=== PATIENT | male | born 1940 | race Caucasian/White ===

== ENCOUNTER 2024-10-23 00:53 | Inpatient (IN) ==
[2024-10-23 01:15] LABS: iSTAT Creatinine 1.8 mg/dl (0.6-1.3); iSTAT Hemoglobin 16.7 g/dl (14.0-18.0); iSTAT Ionized Calcium 1.16 mmol/l (1.12-1.32); iSTAT Potassium 3.2 mmol/L (3.3-5.0)
--- NOTE | 2024-10-23 01:27 | Emergency Department Note ---
Impression & Plan Acute respiratory failure with hypoxia, COPD (chronic obstructive pulmonary disease), Pulmonary edema, CAD (coronary artery disease), Left bundle branch block, MELLY (acute kidney injury), Aspiration pneumonia ED Provider Note NAME: NEGAR FUENTES AGE: 84 SEX: M : 1940 ARRIVES VIA: Ambulance INFORMANT: Patient ED PROVIDER(S): Anjel Sears MD CHIEF COMPLAINT: Acute respiratory failure. PLAN: Disposition: Admit MEDICAL DECISION MAKING: The patient is an 84-year-old gentleman with a past medical history of COPD, restrictive lung disease, CAD (on Brilinta and Entresto) with recent history of [place] in September per discussion with the patient's where the patient had presented to [facility] and was transferred to [facility] and subsequently transferred to [place] where he received a stent. The details of this hospital course are not immediately available. Patient's reports that the patient had been doing well and had followed with [facility] cardiology subsequently. Today he was doing well also they have gone shopping. However this evening the patient reported that he felt congestion in his chest that he needed to cough up and after coughing forcefully began to cough clots and bloody frothy sputum and so EMS was called. On EMS arrival the found the patient in acute respiratory distress tripoding on the floor, noted to be pale and diaphoretic with O2 saturation 60% on RA. He was placed on BiPAP but O2 saturation was in the 70s. HR 120s and BP 170s/70s. This provider reviewed the patient's case with EMS on medical command call. Per my instruction, the patient was given sublingual nitroglycerin for afterload reduction. The patient's respiratory status was declining and was noted to be fatiguing, while also resisting and fighting the BiPAP mask. Thus upon further discussion on medical command call steps for [id number]-[id number] initiated. ~2mg/kg IM ketamine for dissociation/induction as well as 50mcg of Fentanyl for pain administered for DSI with the understanding that if the patient stabilized on BiPAP following this then intubation could be reassessed upon arriving to the emergency department. IV access obtained via left tibial I/O. On arrival, the patient had better tolerance of BiPAP after dissociation. O2 saturation was in the low-mid 80s and gradually improved to the low 90s. Patient's did arrive to the bedside and I did explain the patient's critical status. She did confirm that his wishes were to have everything done at this time and said if the patient were to need intubation then we will proceed with this. The patient continued to have guarded but stabilized respiratory status with O2 saturation in the low 90s. As the effects of his ketamine waned he began to follow commands and so intubation was deferred at this time. Limited bedside ultrasound demonstrates diffuse pulmonary edema on lung exam and limited cardiac ultrasound demonstrated no overt pericardial effusion but suspected at least moderately reduced EF. Patient was taken to CT for CT of his head as well as CT of the chest and abdomen pelvis. EKG demonstrates sinus tachycardia with left bundle branch block, no sgarbossa criteria. QTc 502, QRS 112. WBC 14.3 K with neutrophilia but no left shift. H/H within normal limits. Platelets within normal limits ABG with pH of 7.32, pCO2 of 33 and pO2 of 59. Chemistry with bicarbonate of 17 and anion gap of 18 with initial lactic acid 2.8. Creatinine 1.74, increased from prior consistent with MELLY. Potassium 3.3 and electrolytes otherwise unremarkable. LFTs unremarkable. Initial high- sensitivity troponin 22.6 in setting of the patient's acute respiratory failure. BNP is elevated at 3600 in the setting of suspected recent history of ischemic cardiomyopathy. Procalcitonin is not elevated. UA without convincing evidence of infection. Respiratory BioFire was negative. CT of the head negative for acute abnormalities. CT abdomen pelvis demonstrates prostamegaly and otherwise no acute intra-abdominal process. CTA of the chest is negative for PE. Confluent centrilobular and substantial paraseptal emphysema bilaterally described. Patchy consolidation with interlobular septal thickening of the left upper lobe, posterior segment of the right upper lobe and bilateral lower lobes. Additional right pleural effusion and left pleural effusion noted. Mediastinal lymphadenopathy is suspected to be reactive. Blood cultures were obtained and empiric treatment for aspiration pneumonia initiated with IV Zosyn and linezolid. IV fluid hydration deferred given history of CHF with presentation consistent with pulmonary edema. Case was discussed with Dr. Ortiz, [facility] hospitalist, who will evaluate the patient for admission. Further management per admitting team. Triage Nursing notes reviewed and agree them. Prior/external medical records reviewed Vital Signs: reviewed Differential diagnosis: Reactive airway disease, pneumonia, pneumothorax, COPD, CHF, infections, cardiac ischemia, pulmonary embolism, musculoskeletal, gastrointestinal, as well as other pathologies. ER treatment provided: See below. Diagnostics interpreted by me: ECG: Sinus tachycardia with left bundle branch block, 121 bpm, no sgarbossa criteria. QTc 502, QRS 112. Cardiac Monitoring: An order for continuous cardiac monitoring was placed and demonstrated Sinus tachycardia with left bundle branch block, 121 bpm Laboratory studies: See below Imaging studies: See below Consultation(s): Dr. Ortiz, [facility] hospitalist. HPI: The patient is an 84-year-old gentleman with a past medical history of COPD, restrictive lung disease, CAD (on Brilinta and Entresto) with recent history of [place] in September per discussion with the patient's where the patient had presented to [facility] and was transferred to [facility] and subsequently transferred to [place] where he received a stent. The details of this hospital course are not immediately available. Patient's reports that the patient had been doing well and had followed with [facility] cardiology subsequently. Today he was doing well also they have gone shopping. However this evening the patient reported that he felt congestion in his chest that he needed to cough up and after coughing forcefully began to cough clots and bloody frothy sputum and so EMS was called. On EMS arrival the found the patient in acute respiratory distress tripoding on the floor, noted to be pale and diaphoretic with O2 saturation 60% on RA. He was placed on BiPAP but O2 saturation was in the 70s. HR 120s and BP 170s/70s. This provider reviewed the patient's case with EMS on medical command call. Per my instruction, the patient was given sublingual nitroglycerin for afterload reduction. The patient's respiratory status was declining and was noted to be fatiguing, while also resisting and fighting the BiPAP mask. Thus upon further discussion on medical command call steps for wrsiryd-[id number]-[id number] initiated. ~2mg/kg IM ketamine for dissociation/induction as well as 50mcg of Fentanyl for pain administered for DSI with the understanding that if the patient stabilized on BiPAP following this then intubation could be reassessed upon arriving to the emergency department. IV access obtained via left tibial I/O. ROS: See above HPI for pertinent positives & negatives. A total of 10 systems reviewed and were otherwise negative. VITALS:See Below PHYSICAL EXAMINATION: GENERAL: Awake, alert, ill-appearing, in severe respiratory distress. HENT: Normocephalic, atraumatic. Oropharynx unremarkable. EYES: Normal conjunctiva. Sclera non-icteric. NECK: Supple. No nuchal rigidity. FROM. No JVD. RESPIRATORY: Rales and rhonchi of bilateral lung mag[place]. CARDIAC: Tachycardic rate, normal rhythm. Extremities cool and mottled. Palpable pedal pulses. ABDOMEN: Soft, non-distended. No tenderness to palpation. No rebound or guarding. No masses. MUSCULOSKELETAL: Chest examination reveals no tenderness. The back is symmetrical on inspection without obvious abnormality. There is no CVA tenderness to palpation. No joint edema. LOWER EXTREMITIES: Calves are equal size bilaterally and non-tender. No edema. No erythema. NEURO: Dissociated following ketamine prior to arrival. SKIN: No rash or jaundice noted. ED COURSE: Critical Care: I have personally spent greater than 65 minutes of critical care time in the direct management of this patient. This includes bedside care, interpretation of diagnostic studies, and testing, discussion with consultants, patient, and family members, and other required patient management activities. This 65 minutes is in excess of all separately billable procedures. Anjel Sears MD Past Med/Surg History Problem List (Updated 10/23/24 @ 07:13 by Anjel Sears MD) Left bundle branch block (Acute) COPD (chronic obstructive pulmonary disease) (Acute) MELLY (acute kidney injury) Required emergent intubation Hyperglycemia Admitted to intensive care unit Aspiration pneumonia (Acute) CAD (coronary artery disease) (Acute) Pulmonary edema (Acute) Abnormal chest x-ray Acute respiratory failure with hypoxia (Acute) No significant past surgical history No significant past medical history Medical History (Updated 10/23/24 @ 07:13 by Anjel Sears MD) Left bundle branch block Restrictive lung disease COPD (chronic obstructive pulmonary disease) Ex-smoker Shortness of breath Pneumonia due to COVID-19 virus COVID-19 Surgical History (Updated 10/23/24 @ 04:41 by LASHAWN Galindo) Presence of stent in coronary artery Family History Other No significant family history Social History Smoking Status: Former smoker Do You Dip or Chew Tobacco: No; Hx Alcohol Use: No Hx Substance Use: No Preferred Language: [place] Citizen Communication Ability: Effective 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 Beliefs That Will Affect Care: None Current Living Situation: Spouse Current Living Situation Comment: with Other Information That Helps Us Care for You: No Feels Safe at Home: Yes Safety Concerns: Feels Safe At This Time Assistive Devices: Denture - Upper, Denture - Lower and Glasses Allergies Allergies Allergy/AdvReac Type Severity Reaction Status Date / Time No Known Allergies Allergy Unverified 10/18/24 15:28 Home Meds Home Medications Medication Instructions Recorded Confirmed aspirin 81 mg tablet,delayed 81 mg PO DAILY 10/18/24 10/23/24 release (Adult Aspirin Regimen) atorvastatin 40 mg tablet 40 mg PO HS 10/23/24 10/23/24 citalopram 10 mg tablet 10 mg PO DAILY 10/23/24 10/23/24 dapagliflozin propanediol 10 mg 10 mg PO DAILY 10/23/24 10/23/24 tablet (Farxiga) furosemide 20 mg tablet 20 mg PO DAILY 10/23/24 10/23/24 metoprolol succinate 50 mg 50 mg PO DAILY 10/23/24 10/23/24 tablet,extended release 24 hr sacubitril 49 mg-valsartan 51 mg 1 tab PO BID 10/23/24 10/23/24 tablet (Entresto) ticagrelor 90 mg tablet (Brilinta) 90 mg PO BID 10/23/24 10/23/24 Previous Rx's Medication Instructions Recorded albuterol sulfate 90 mcg/actuation 2 puff inhalation Q6H PRN 09/23/23 aerosol inhaler Shortness Of Breath Or Wheezing #18 grams cephalexin 500 mg capsule 500 mg PO TID 7 days #21 caps 10/18/24 Results & Data (ED) Vital Signs Vital Signs - 24 hr 10/23/24 00:45 10/23/24 00:59 10/23/24 01:00 Temperature Temperature Source Pulse Rate 130 H 117 H 132 H Pulse Rate [Apical] Pulse Rate from SpO2 Sensor Respiratory Rate 35 H 32 H Respiratory Effort / Characteristics Respiratory Depth Respiratory Pattern Blood Pressure 146/95 H Blood Pressure [Left Arm] Blood Pressure Mean 101 Blood Pressure Mean [Left Arm] Pulse Oximetry 64 L 91 Oxygen Delivery Method BiPAP Fraction of Inspired Oxygen Sepsis Recent Fever Within 48 Hours No Sepsis New/Unexplained Change in Mental Status No Sepsis Action Taken by Nursing Physician Notified 10/23/24 01:02 10/23/24 01:06 10/23/24 01:06 Temperature 35.8 C L Temperature Source Wilkinson Cath ( Temp Sensing) Pulse Rate Pulse Rate [Apical] 122 H Pulse Rate from SpO2 Sensor Respiratory Rate 30 H Respiratory Effort / Characteristics Respiratory Depth Respiratory Pattern Blood Pressure Blood Pressure [Left Arm] 158/111 H Blood Pressure Mean Blood Pressure Mean [Left Arm] 126 Pulse Oximetry 93 Oxygen Delivery Method BiPAP BiPAP Fraction of Inspired Oxygen Sepsis Recent Fever Within 48 Hours Sepsis New/Unexplained Change in Mental Status Sepsis Action Taken by Nursing 10/23/24 01:10 10/23/24 01:10 10/23/24 01:10 Temperature Temperature Source Pulse Rate Pulse Rate [Apical] Pulse Rate from SpO2 Sensor Respiratory Rate Respiratory Effort / Characteristics Respiratory Depth Respiratory Pattern Blood Pressure 149/104 H 149/104 H 149/104 H Blood Pressure [Left Arm] Blood Pressure Mean 125 125 125 Blood Pressure Mean [Left Arm] Pulse Oximetry Oxygen Delivery Method Fraction of Inspired Oxygen Sepsis Recent Fever Within 48 Hours Sepsis New/Unexplained Change in Mental Status Sepsis Action Taken by Nursing 10/23/24 01:16 10/23/24 01:18 10/23/24 01:19 Temperature 36.4 C L Temperature Source Pulse Rate 116 H 116 H Pulse Rate [Apical] Pulse Rate from SpO2 Sensor 117 H Respiratory Rate 35 H Respiratory Effort / Characteristics Accessory Muscle Use Labored Short of Breath Respiratory Depth Shallow Respiratory Pattern Tachypnea Blood Pressure Blood Pressure [Left Arm] Blood Pressure Mean Blood Pressure Mean [Left Arm] Pulse Oximetry 93 91 89 L Oxygen Delivery Method BiPAP BiPAP Fraction of Inspired Oxygen 100 Sepsis Recent Fever Within 48 Hours Sepsis New/Unexplained Change in Mental Status Sepsis Action Taken by Nursing 10/23/24 01:20 10/23/24 01:20 10/23/24 01:21 Temperature 36.5 C Temperature Source Pulse Rate 119 H Pulse Rate [Apical] Pulse Rate from SpO2 Sensor 122 H Respiratory Rate Respiratory Effort / Characteristics Respiratory Depth Respiratory Pattern Blood Pressure 158/110 H 158/110 H Blood Pressure [Left Arm] Blood Pressure Mean 131 131 Blood Pressure Mean [Left Arm] Pulse Oximetry 90 Oxygen Delivery Method Fraction of Inspired Oxygen Sepsis Recent Fever Within 48 Hours Sepsis New/Unexplained Change in Mental Status Sepsis Action Taken by Nursing 10/23/24 01:50 10/23/24 01:50 10/23/24 01:50 Temperature Temperature Source Pulse Rate Pulse Rate [Apical] Pulse Rate from SpO2 Sensor Respiratory Rate Respiratory Effort / Characteristics Respiratory Depth Respiratory Pattern Blood Pressure 131/87 131/87 131/87 Blood Pressure [Left Arm] Blood Pressure Mean 109 109 109 Blood Pressure Mean [Left Arm] Pulse Oximetry Oxygen Delivery Method Fraction of Inspired Oxygen Sepsis Recent Fever Within 48 Hours Sepsis New/Unexplained Change in Mental Status Sepsis Action Taken by Nursing 10/23/24 01:50 10/23/24 01:51 10/23/24 01:57 Temperature 36.3 C L 36.4 C L Temperature Source Pulse Rate 100 H 100 H Pulse Rate [Apical] Pulse Rate from SpO2 Sensor 100 H 100 H Respiratory Rate 27 H 27 H Respiratory Effort / Characteristics Respiratory Depth Respiratory Pattern Blood Pressure 131/87 Blood Pressure [Left Arm] Blood Pressure Mean 109 Blood Pressure Mean [Left Arm] Pulse Oximetry 91 89 L Oxygen Delivery Method Fraction of Inspired Oxygen Sepsis Recent Fever Within 48 Hours Sepsis New/Unexplained Change in Mental Status Sepsis Action Taken by Nursing 10/23/24 02:00 10/23/24 02:03 10/23/24 02:12 Temperature 36.4 C L 36.5 C Temperature Source Pulse Rate 100 H 98 H Pulse Rate [Apical] Pulse Rate from SpO2 Sensor 101 H 98 H Respiratory Rate 27 H 26 H Respiratory Effort / Characteristics Respiratory Depth Respiratory Pattern Blood Pressure 122/85 Blood Pressure [Left Arm] Blood Pressure Mean 105 Blood Pressure Mean [Left Arm] Pulse Oximetry 90 89 L Oxygen Delivery Method Fraction of Inspired Oxygen Sepsis Recent Fever Within 48 Hours Sepsis New/Unexplained Change in Mental Status Sepsis Action Taken by Nursing Laboratory Data Attestation: I reviewed the patient's lab results. 10/23/24 01:15 10/23/24 01:15 Lab Results 10/23/24 10/23/24 10/23/24 Range/Units 01:00 01:02 01:05 WBC (4.8-10.8) K/ul RBC (4.70-6.10) M/uL Hgb (14.0-18.0) g/dl POC Hgb 16.7 (14.0-18.0) g/dl Hct (42.0-52.0) % POC Hct 49 (42-52) % MCV (80.0-100.0) fL MCH (25.0-34.0) pg MCHC (32.0-36.0) g/dL RDW Std Deviation (36.4-46.3) fL RDW Coeff of Dinah (11.5-14.5) % Plt Count (130-400) K/uL MPV (9.4-12.4) fL Immature Gran % (Auto) % Neut % (Auto) % Lymph % (Auto) % Jewell % (Auto) % Eos % (Auto) % Baso % (Auto) % Neut # (Auto) (1.40-6.50) K/uL Lymph # (Auto) (1.20-3.40) K/uL Jewell # (Auto) (0.11-0.59) K/uL Eos # (Auto) (0.00-0.50) K/uL Baso # (Auto) (0.00-0.20) K/uL Immature Gran # (Auto) (0.01-0.20) K/uL PT (9.0-12.0) Seconds INR (0.9-1.1) APTT (21-31) Seconds PTT Ratio POC pH (7.35-7.45) POC pCO2 (35-46) mmHg POC pO2 (80-95) mmHg POC HCO3 (19-24) osmar/L POC Base Excess (-9-1.8) osmar/L POC ABG O2 Sat (90-95) % POC Sodium 139 (135-144) mmol/L Sodium (136-145) mmol/L POC Potassium 3.2 L (3.3-5.0) mmol/L Potassium (3.5-5.1) mmol/L POC Chloride 105 (101-112) mmol/L Chloride (98-107) mmol/L Carbon Dioxide (21-32) mmol/L POC Total CO2 18 L (24-31) mmol/L Anion Gap (3-11) POC Anion Gap 19.0 (16-25) mmol/L POC BUN 19 H (7-18) mg/dl BUN (6-23) mg/dl Creatinine (0.6-1.4) mg/dl POC Creatinine 1.8 H (0.6-1.3) mg/dl Est Cr Clr Drug Dosing ml/min eGFR BUN/Creatinine Ratio (10-20) Glucose (70-99(Fasting)) mg/dl POC Glucose (other) 237 H (70-99) mg/dl Calcium (8.6-10.3) mg/dl POC Ioniz Calcium Arjun 1.16 (1.12-1.32) mmol/l Magnesium (1.7-2.4) mg/dl Total Bilirubin (0.2-1.0) mg/dl AST (13-39) U/L ALT (7-52) U/L Alkaline Phosphatase (34-104) U/L Troponin I High Sens (0-20) pg/ml B-Natriuretic Peptide (0-100) pg/ml Total Protein (6.0-8.3) gm/dl Albumin (3.4-5.0) gm/dl Globulin (2.5-4.0) gm/dl Albumin/Globulin Ratio (0.9-2) Lipase (11-82) U/L Procalcitonin < 0.02 (0-0.5) ng/ml Urine Color Yellow Urine Appearance Clear (Clear) Urine pH 6.0 (4.5-7.5) Ur Specific [place] 1.008 (1.000-1.030) Urine Protein Trace H (Negative) Urine Glucose (UA) Negative (Negative) Urine Ketones Negative (Negative) Urine Blood Trace H (Negative) Urine Nitrite Negative (Negative) Urine Bilirubin Negative (Negative) Urine Urobilinogen Negative (Negative) Ur Leukocyte Esterase 1+ H (Negative) Urine WBC (Auto) 6-10 H (0-5) /hpf Urine RBC (Auto) 3-5 H (0-2) /hpf U Hyaline Cast (Auto) 0-2 (0-2) /lpf U Epithel Cells (Auto) 0-2 (0-2) /hpf Urine Bacteria (Auto) None Seen (None Seen) Adenovirus (PCR) (NotDetected) B. pertussis DNA (PCR) (NotDetected) B.parapertussis DNA PCR (NotDetected) C. pneumoniae DNA (PCR) (NotDetected) Coronavirus OC43 (PCR) (NotDetected) Coronavirus HKU1 (PCR) (NotDetected) Coronavirus 229E (PCR) (NotDetected) SARS-CoV-2 (PCR) (NotDetected) Coronavirus NL63 (PCR) (NotDetected) Human Metapneumovir PCR (NotDetected) Influenza Type A (PCR) (NotDetected) Influenza Type B (PCR) (NotDetected) M. pneumoniae (PCR) (NotDetected) Parainfluenza 1 (PCR) (NotDetected) Parainfluenza 2 (PCR) (NotDetected) Parainfluenza 3 (PCR) (NotDetected) Parainfluenza 4 (PCR) (NotDetected) RSV (PCR) (NotDetected) Entero/Rhino (PCR) (NotDetected) 10/23/24 10/23/24 10/23/24 Range/Units 01:15 01:16 01:18 WBC 14.33 H (4.8-10.8) K/ul RBC 5.01 (4.70-6.10) M/uL Hgb 15.8 (14.0-18.0) g/dl POC Hgb (14.0-18.0) g/dl Hct 49.6 (42.0-52.0) % POC Hct (42-52) % MCV 99.0 (80.0-100.0) fL MCH 31.5 (25.0-34.0) pg MCHC 31.9 L (32.0-36.0) g/dL RDW Std Deviation 49.1 H (36.4-46.3) fL RDW Coeff of Dinah 13.5 (11.5-14.5) % Plt Count 301 (130-400) K/uL MPV 9.6 (9.4-12.4) fL Immature Gran % (Auto) 0.4 % Neut % (Auto) 52.4 % Lymph % (Auto) 38.0 % Jewell % (Auto) 4.5 % Eos % (Auto) 3.9 % Baso % (Auto) 0.8 % Neut # (Auto) 7.50 H (1.40-6.50) K/uL Lymph # (Auto) 5.45 H (1.20-3.40) K/uL Jewell # (Auto) 0.64 H (0.11-0.59) K/uL Eos # (Auto) 0.56 H (0.00-0.50) K/uL Baso # (Auto) 0.12 (0.00-0.20) K/uL Immature Gran # (Auto) 0.06 (0.01-0.20) K/uL PT 11.2 (9.0-12.0) Seconds INR 1.0 (0.9-1.1) APTT 28 (21-31) Seconds PTT Ratio 1.0 POC pH (7.35-7.45) POC pCO2 (35-46) mmHg POC pO2 (80-95) mmHg POC HCO3 (19-24) osmar/L POC Base Excess (-9-1.8) osmar/L POC ABG O2 Sat (90-95) % POC Sodium (135-144) mmol/L Sodium 137 (136-145) mmol/L POC Potassium (3.3-5.0) mmol/L Potassium 3.3 L (3.5-5.1) mmol/L POC Chloride (101-112) mmol/L Chloride 102 (98-107) mmol/L Carbon Dioxide 17 L (21-32) mmol/L POC Total CO2 (24-31) mmol/L Anion Gap 18 H (3-11) POC Anion Gap (16-25) mmol/L POC BUN (7-18) mg/dl BUN 19 (6-23) mg/dl Creatinine 1.74 H (0.6-1.4) mg/dl POC Creatinine (0.6-1.3) mg/dl Est Cr Clr Drug Dosing 25.5 ml/min eGFR 38.66 BUN/Creatinine Ratio 10.9 (10-20) Glucose 252 H (70-99(Fasting)) mg/dl POC Glucose (other) (70-99) mg/dl Calcium 9.2 (8.6-10.3) mg/dl POC Ioniz Calcium Arjun (1.12-1.32) mmol/l Magnesium 2.2 (1.7-2.4) mg/dl Total Bilirubin 0.4 (0.2-1.0) mg/dl AST 17 (13-39) U/L ALT 11 (7-52) U/L Alkaline Phosphatase 121 H (34-104) U/L Troponin I High Sens 22.6 H (0-20) pg/ml B-Natriuretic Peptide 3614 H (0-100) pg/ml Total Protein 7.3 (6.0-8.3) gm/dl Albumin 3.8 (3.4-5.0) gm/dl Globulin 3.5 (2.5-4.0) gm/dl Albumin/Globulin Ratio 1.1 (0.9-2) Lipase 34 (11-82) U/L Procalcitonin (0-0.5) ng/ml Urine Color Urine Appearance (Clear) Urine pH (4.5-7.5) Ur Specific [place] (1.000-1.030) Urine Protein (Negative) Urine Glucose (UA) (Negative) Urine Ketones (Negative) Urine Blood (Negative) Urine Nitrite (Negative) Urine Bilirubin (Negative) Urine Urobilinogen (Negative) Ur Leukocyte Esterase (Negative) Urine WBC (Auto) (0-5) /hpf Urine RBC (Auto) (0-2) /hpf U Hyaline Cast (Auto) (0-2) /lpf U Epithel Cells (Auto) (0-2) /hpf Urine Bacteria (Auto) (None Seen) Adenovirus (PCR) Not Detected (NotDetected) B. pertussis DNA (PCR) Not Detected (NotDetected) B.parapertussis DNA PCR Not Detected (NotDetected) C. pneumoniae DNA (PCR) Not Detected (NotDetected) Coronavirus OC43 (PCR) Not Detected (NotDetected) Coronavirus HKU1 (PCR) Not Detected (NotDetected) Coronavirus 229E (PCR) Not Detected (NotDetected) SARS-CoV-2 (PCR) Not Detected (NotDetected) Coronavirus NL63 (PCR) Not Detected (NotDetected) Human Metapneumovir PCR Not Detected (NotDetected) Influenza Type A (PCR) Not Detected (NotDetected) Influenza Type B (PCR) Not Detected (NotDetected) M. pneumoniae (PCR) Not Detected (NotDetected) Parainfluenza 1 (PCR) Not Detected (NotDetected) Parainfluenza 2 (PCR) Not Detected (NotDetected) Parainfluenza 3 (PCR) Not Detected (NotDetected) Parainfluenza 4 (PCR) Not Detected (NotDetected) RSV (PCR) Not Detected (NotDetected) Entero/Rhino (PCR) Not Detected (NotDetected) 10/23/24 Range/Units 02:01 WBC (4.8-10.8) K/ul RBC (4.70-6.10) M/uL Hgb (14.0-18.0) g/dl POC Hgb 14.3 (14.0-18.0) g/dl Hct (42.0-52.0) % POC Hct 42 (42-52) % MCV (80.0-100.0) fL MCH (25.0-34.0) pg MCHC (32.0-36.0) g/dL RDW Std Deviation (36.4-46.3) fL RDW Coeff of Dinah (11.5-14.5) % Plt Count (130-400) K/uL MPV (9.4-12.4) fL Immature Gran % (Auto) % Neut % (Auto) % Lymph % (Auto) % Jewell % (Auto) % Eos % (Auto) % Baso % (Auto) % Neut # (Auto) (1.40-6.50) K/uL Lymph # (Auto) (1.20-3.40) K/uL Jewell # (Auto) (0.11-0.59) K/uL Eos # (Auto) (0.00-0.50) K/uL Baso # (Auto) (0.00-0.20) K/uL Immature Gran # (Auto) (0.01-0.20) K/uL PT (9.0-12.0) Seconds INR (0.9-1.1) APTT (21-31) Seconds PTT Ratio POC pH 7.32 L (7.35-7.45) POC pCO2 33 L (35-46) mmHg POC pO2 59 L (80-95) mmHg POC HCO3 17 L (19-24) osmar/L POC Base Excess -9.0 (-9-1.8) osmar/L POC ABG O2 Sat 88.0 L (90-95) % POC Sodium 135 (135-144) mmol/L Sodium (136-145) mmol/L POC Potassium 2.7 L (3.3-5.0) mmol/L Potassium (3.5-5.1) mmol/L POC Chloride (101-112) mmol/L Chloride (98-107) mmol/L Carbon Dioxide (21-32) mmol/L POC Total CO2 18 L (24-31) mmol/L Anion Gap (3-11) POC Anion Gap (16-25) mmol/L POC BUN (7-18) mg/dl BUN (6-23) mg/dl Creatinine (0.6-1.4) mg/dl POC Creatinine (0.6-1.3) mg/dl Est Cr Clr Drug Dosing ml/min eGFR BUN/Creatinine Ratio (10-20) Glucose (70-99(Fasting)) mg/dl POC Glucose (other) (70-99) mg/dl Calcium (8.6-10.3) mg/dl POC Ioniz Calcium Arjun (1.12-1.32) mmol/l Magnesium (1.7-2.4) mg/dl Total Bilirubin (0.2-1.0) mg/dl AST (13-39) U/L ALT (7-52) U/L Alkaline Phosphatase (34-104) U/L Troponin I High Sens (0-20) pg/ml B-Natriuretic Peptide (0-100) pg/ml Total Protein (6.0-8.3) gm/dl Albumin (3.4-5.0) gm/dl Globulin (2.5-4.0) gm/dl Albumin/Globulin Ratio (0.9-2) Lipase (11-82) U/L Procalcitonin (0-0.5) ng/ml Urine Color Urine Appearance (Clear) Urine pH (4.5-7.5) Ur Specific [place] (1.000-1.030) Urine Protein (Negative) Urine Glucose (UA) (Negative) Urine Ketones (Negative) Urine Blood (Negative) Urine Nitrite (Negative) Urine Bilirubin (Negative) Urine Urobilinogen (Negative) Ur Leukocyte Esterase (Negative) Urine WBC (Auto) (0-5) /hpf Urine RBC (Auto) (0-2) /hpf U Hyaline Cast (Auto) (0-2) /lpf U Epithel Cells (Auto) (0-2) /hpf Urine Bacteria (Auto) (None Seen) Adenovirus (PCR) (NotDetected) B. pertussis DNA (PCR) (NotDetected) B.parapertussis DNA PCR (NotDetected) C. pneumoniae DNA (PCR) (NotDetected) Coronavirus OC43 (PCR) (NotDetected) Coronavirus HKU1 (PCR) (NotDetected) Coronavirus 229E (PCR) (NotDetected) SARS-CoV-2 (PCR) (NotDetected) Coronavirus NL63 (PCR) (NotDetected) Human Metapneumovir PCR (NotDetected) Influenza Type A (PCR) (NotDetected) Influenza Type B (PCR) (NotDetected) M. pneumoniae (PCR) (NotDetected) Parainfluenza 1 (PCR) (NotDetected) Parainfluenza 2 (PCR) (NotDetected) Parainfluenza 3 (PCR) (NotDetected) Parainfluenza 4 (PCR) (NotDetected) RSV (PCR) (NotDetected) Entero/Rhino (PCR) (NotDetected) Administered Medications Fentanyl Citrate (Fentanyl Citrate) 2,500 mcg in 250 mls @ 2.5 mls/hr IV .Q96H [facility]; Protocol Stop: 11/06/24 04:44 Last Admin: 10/23/24 04:56 Dose: 50 mcg/hr, 5 mls/hr Documented By: UMBERTO Co-signed By: [facility] [place]ithromycin 500 mg/ Sodium (Chloride) 255 mls @ 127.5 mls/hr IV NOW ONE Stop: 10/23/24 07:44 Last Admin: 10/23/24 05:50 Dose: 127.5 mls/hr Documented By: UMBERTO Insulin Aspart (Insulin Aspart Per Unit Charge) 0 units SC Q6 [facility] Stop: 11/22/24 05:59 Last Admin: 10/23/24 06:17 Dose: 3 units Documented By: TMG Co-signed By: TP Discontinued Medications Fentanyl Citrate (Fentanyl Citrate 2,500 Mcg/250 Ml Bag) Confirm Administered Dose 2,500 mcg IV .STK-MED ONE Stop: 10/23/24 04:09 Last Admin: 10/23/24 05:51 Dose: Not Given Documented By: TMG Furosemide (Furosemide Inj 20 Mg/2 Ml Vial) 20 mg IV ONE ONE Stop: 10/23/24 03:19 Last Admin: 10/23/24 04:35 Dose: 20 mg Documented By: UMBERTO Piperacillin Sod/Tazobactam Sod (Zosyn) 4.5 gm in 100 mls @ 200 mls/hr IV NOW ONE; Protocol Stop: 10/23/24 02:30 Last Infusion: 10/23/24 05:57 Dose: Infused Documented By: Admin: 10/23/24 02:17 Dose: 200 mls/hr Documented By: RAQUEL Linezolid (Zyvox) 600 mg in 300 mls @ 300 mls/hr IV NOW STA Stop: 10/23/24 03:00 Last Infusion: 10/23/24 05:57 Dose: Infused Documented By: Admin: 10/23/24 02:34 Dose: 300 mls/hr Documented By: RAQUEL Potassium Chloride (K Topher / Wtr) 10 meq in 100 mls @ 100 mls/hr IV Q1H [facility] Stop: 10/23/24 03:14 Last Infusion: 10/23/24 05:57 Dose: Infused Documented By: Admin: 10/23/24 02:17 Dose: 100 mls/hr Documented By: RAQUEL Ioversol (Optiray 320 125ml) 120 ml IV ONCE ONE Stop: 10/23/24 01:34 Last Admin: 10/23/24 01:31 Dose: 120 ml Documented By: SHELIA Lorazepam (Lorazepam 2 Mg/1 Ml Vial) 0.5 mg IV NOW STA Stop: 10/23/24 03:01 Last Admin: 10/23/24 04:35 Dose: 0.5 mg Documented By: UMBERTO Methylprednisolone (Methylprednisolone 125 Mg/2 Ml Vial) 125 mg IV NOW STA Stop: 10/23/24 02:05 Last Admin: 10/23/24 02:17 Dose: 125 mg Documented By: RAQUEL Miscellaneous (Rapid Sequence Induction Bag) Confirm Administered Dose 1 each N/A .STK-MED ONE Stop: 10/23/24 00:41 Last Admin: 10/23/24 03:17 Dose: Not Given Documented By: RAQUEL Liz (Rapid Sequence Induction Bag) Confirm Administered Dose 1 each N/A .STK-MED ONE Stop: 10/23/24 03:22 Last Admin: 10/23/24 04:36 Dose: Not Given Documented By: TMG Miscellaneous (Rapid Sequence Induction Bag) Confirm Administered Dose 1 each N/A .STK-MED ONE Stop: 10/23/24 03:56 Last Admin: 10/23/24 04:36 Dose: Not Given Documented By: TMG Ondansetron HCl (Ondansetron Inj 2 Mg/Ml 2 Ml Vial) 4 mg IV NOW STA Stop: 10/23/24 03:15 Last Admin: 10/23/24 04:35 Dose: 4 mg Documented By: TMG Ondansetron HCl (Ondansetron Inj 2 Mg/Ml 2 Ml Vial) Confirm Administered Dose 4 mg .ROUTE .STK-MED ONE Stop: 10/23/24 03:18 Last Admin: 10/23/24 04:36 Dose: Not Given Documented By: TMG Imaging Data Radiologist's Impression: Abdomen/Pelvis CT 10/23/24 01:16 EXAM: CT abd pelvis IV con only CLINICAL HISTORY: acute resp fail, r/o PE, ams, melly, 120 ml optiray 320 TECHNIQUE: Contiguous axial images were obtained from the level of the diaphragm to the pubic symphysis following intravenous administration of contrast material. Coronal and sagittal reconstructions were likewise performed and indicated to increase the sensitivity for detecting clinically relevant pathology. If IV contrast material had not been administered, the likelihood of detecting abnormalities relevant to the patient's condition would have been substantially decreased. CT scan was performed according to ALARA (as low as reasonable achievable). COMPARISON: None. FINDINGS: The visualized lung bases show confluent centrilobular emphysema with patchy consolidation. The liver shows two small subcentimetric cysts in segment II and VIII. No other focal liver lesions are seen. There is no intra or extrahepatic biliary ductal dilatation. Hepatic vasculature is patent. The gallbladder is unremarkable. The spleen, pancreas, and adrenal glands are unremarkable. The kidneys are normal in size and attenuation with a subcentimetric simple cyst at the upper pole of left kidney. There is no hydronephrosis or perinephric fat stranding. The ureters are normal in caliber. The urinary bladder is empty with Wilkinson's catheter in situ. The prostate is grossly enlarged. No focal or diffuse bowel wall thickening or evidence of bowel obstruction is identified. No inflamed appendix is visualized in the right lower quadrant. Extensive atherocalcific plaques noted in the abdominal aorta. Left small fat-containing inguinal hernia is noted. No aggressive appearing osseous lesions are identified. IMPRESSION: 1. Confluent centrilobular emphysema with patchy consolidation in visualized lung bases. 2. Prostatomegaly - ultrasound correlation recommended 3. Left fat-containing small inguinal hernia Electronically signed by Gilberto Middleton 10-23-2024 03:25 AM Chest CTA 10/23/24 01:16 EXAM: CT angio chest PE protocol CLINICAL HISTORY: acute resp fail, r/o PE, ams, melly, 120 ml optiray 320 TECHNIQUE: Contiguous 3.[address] angiographic images of the chest were acquired with the administration of intravenous contrast. Coronal and sagittal reconstructions were obtained. One of these 3D techniques was utilized: Maximum Intensity Pixel (MIP), 3D Reconstructed Images, Volume Rendered Images, Surface Shaded Rendering. One of the following dose reduction techniques were utilized for this exam: Automated exposure control, adjustment of the mA and/or kV according to patient size, and use of iterative reconstruction. CTDI: DLP: COMPARISON: None. FINDINGS: Aorta: Extensive atherocalcific plaques in aortic arch and descending thoracic aorta. No evidence of aneurysm, dissection, or significant atherosclerotic changes. Aortic arch and descending thoracic aorta are unremarkable. Pulmonary Arteries: Pulmonary arteries are normal in size and opacification. No evidence of pulmonary embolism. No stenosis or filling defects. Superior Vena Cava (SVC) and Inferior Vena Cava (IVC): Normal opacification and caliber. No evidence of thrombus or obstruction. Coronary Arteries: Coronary arteries are well-opacified. No significant stenosis or atherosclerotic changes. Mediastinum: No mediastinal mass or lymphadenopathy. Normal appearance of the thymus. Heart: Normal size and morphology of the heart. No pericardial effusion. Lungs: Visualized abdomen reveals few subcentimetric simple hepatic cyst in segment II and VIII. There is confluent centrilobular and substantial paraseptal emphysema in bilateral lung parenchyma. Patchy consolidation with interlobular septal thickening apicoposterior segment of left upper lobe, posterior segment of right upper lobe and bilateral lower lobes. Right mild pleural effusion, measuring up to 1.4 cm in thickness and left mild pleural effusion measuring up to 1 cm in thickness. Few fibrotic bands at apical segment of right upper lobe. No pleural effusion or thickening. Bones: No fractures or lytic/sclerotic lesions of the visualized bony structures. Normal alignment and bone density. Soft Tissues: Few enlarged mediastinal lymph nodes, largest of short axis diameter 1.3 cm at subcarinal location. No abnormal masses or fluid collections. IMPRESSION: 1. No evidence of pulmonary embolism. 2. Confluent centrilobular and substantial paraseptal emphysema in bilateral lung parenchyma. 3. Patchy consolidation with interlobular septal thickening at apicoposterior segment of left upper lobe, posterior segment of right upper lobe and bilateral lower lobes. 4. Right mild pleural effusion, measuring up to 1.4 cm in thickness and left mild pleural effusion measuring up to 1 cm in thickness. 5. Mediastinal lymphadenopathy, likely reactive. Electronically signed by Gilberto Middleton 10-23-2024 04:[address] 10/23/24 01:16 EXAM: CT head/brain wo con CLINICAL HISTORY: acute resp fail, r/o PE, ams, melly, 120 ml optiray 320 TECHNIQUE: Multiple axial images are obtained from the skull base to the vertex without contrast. CT scan was performed according to ALARA (as low as reasonable achievable). COMPARISON: None. FINDINGS: There is cerebral atrophy. No evidence of space occupying lesion, hemorrhage, edema, mass effect, midline shift, extra axial collection, or hydrocephalus is noted. Basal cisterns are symmetric and normal in size and configuration. There are scattered periventricular hypodensities as can be seen with chronic microvascular ischemic changes. The lund-white matter differentiation is preserved. Visualized paranasal sinuses and mastoid air cells are well aerated. Orbital contents are within normal limits. Bony structures are intact. IMPRESSION: 1. Chronic microvascular ischemic changes. 2. Cerebral atrophy. 3. No evidence of acute intracranial abnormality. Electronically signed by Gilberto Middleton 10-23-2024 02:59 AM Discharge Plan Visit Data Chief Complaint: Respiratory Distress Stated Complaint: RESP. DISTRESS ED Provider: Anjel Sears Discharge Problem: Acute respiratory failure with hypoxia, COPD (chronic obstructive pulmonary disease), Pulmonary edema, CAD (coronary artery disease), Left bundle branch block, MELLY (acute kidney injury), Aspiration pneumonia Patient Disposition: Admitted As Inpatient Discharge Instructions Interventions: ED Discharge Assessment Last Done: 10/23/24 03:17 Discharge Problem: COPD (chronic obstructive pulmonary disease) Qualifiers: COPD type: COPD with acute lower respiratory infection Qualified Code(s): J44.0 - Chronic obstructive pulmonary disease with (acute) lower respiratory infection Pulmonary edema Qualifiers: Chronicity: acute Qualified Code(s): J81.0 - Acute pulmonary edema CAD (coronary artery disease) Qualifiers: Coronary Disease-Associated Artery/Lesion type: unspecified vessel or lesion type [place] vs. transplanted heart: [place] heart Associated angina: unspecified whether angina present Qualified Code(s): I25.10 - Atherosclerotic heart disease of [place] coronary artery without angina pectoris Aspiration pneumonia Qualifiers: Aspiration pneumonia type: unspecified Laterality: bilateral Lung location: l ower lobe of lung Qualified Code(s): J69.0 - Pneumonitis due to inhalation of food and vomit
[2024-10-23] MEDS: OPTIRAY 320 125ml IV ONE (01:31)
[2024-10-23 01:35] LABS: Appearance Urine Clear (Clear); Bacteria Urine Automated None Seen (None Seen); Bilirubin Urine Negative (Negative); Blood Urine Trace (Negative); Cast Urine Automated 0-2 /lpf (0-2); Color Urine Yellow; Epithelial Cell Urine Auto 0-2 /hpf (0-2); Glucose Urine UA Negative (Negative); Ketones Urine Negative (Negative); Leukocyte Esterase Urine 1+ (Negative); Nitrite Urine Negative (Negative); Protein Urine Trace (Negative); Specific Gravity Urine 1.008 (1.000-1.030); Urobilinogen Urine Negative (Negative)
[2024-10-23 01:42] LABS: Hematocrit (blood only) 49.6 % (42.0-52.0); Hemoglobin 15.8 g/dl (14.0-18.0); Mean Corpuscular Hemoglobin 31.5 pg (25.0-34.0); Mean Corpuscular Hgb Conc 31.9 g/dL (32.0-36.0); Mean Platelet Volume 9.6 fL (9.4-12.4); Platelet Count 301 K/uL (130-400); RDW Coefficient of Variation 13.5 % (11.5-14.5); RDW Standard Deviation 49.1 fL (36.4-46.3); Red Blood Count 5.01 M/uL (4.70-6.10); White Blood Count 14.33 K/ul (4.8-10.8)
[2024-10-23 01:44] LABS: Albumin Globulin Ratio 1.1 (0.9-2); Albumin Level 3.8 gm/dl (3.4-5.0); BUN Creatinine Ratio 10.9 (10-20); Bilirubin,Total 0.4 mg/dl (0.2-1.0); Calcium 9.2 mg/dl (8.6-10.3); Creatinine Clr Calc Pharmacy 25.5 ml/min; Globulin 3.5 gm/dl (2.5-4.0); Magnesium 2.2 mg/dl (1.7-2.4); Potassium 3.3 mmol/L (3.5-5.1); Total Protein 7.3 gm/dl (6.0-8.3)
[2024-10-23 01:50] LABS: Troponin I High Sensitivity 22.6 pg/ml (0-20)
[2024-10-23 02:03] LABS: Partial Thromboplastin Time 28 Seconds (21-31); Prothrombin Time 11.2 Seconds (9.0-12.0)
[2024-10-23] MEDS ORDERED: LINEZOLID 600 MG/300 ML BAG IV SCH ×3 (02:15→14:00)
[2024-10-23] MEDS: methylPREDNISolone 125 MG/2 ML VIAL IV STA (02:17)
[2024-10-23] MEDS: PIPERACILLIN/TAZOBACTAM 4.5 GM/100 ML BAG IV ONE (02:17)
[2024-10-23] MEDS: POTASSIUM CHLORIDE / WTR 10 MEQ/100 ML PLCT IV SCH (02:17)
[2024-10-23 02:19] LABS: iSTAT Arterial Blood Gas HCO3 17 meg/L (19-24); iSTAT Arterial Blood Gas pCO2 33 mmHg (35-46); iSTAT Arterial Blood Gas pH 7.32 (7.35-7.45); iSTAT Arterial Blood Gas pO2 59 mmHg (80-95); iSTAT Carbon Dioxide 18 mmol/L (24-31); iSTAT Hematocrit 42 % (42-52); iSTAT Hemoglobin 14.3 g/dl (14.0-18.0); iSTAT Potassium 2.7 mmol/L (3.3-5.0); iSTAT Sodium 135 mmol/L (135-144)
[2024-10-23 02:20] LABS: Basophils # (auto) 0.12 K/uL (0.00-0.20); Basophils % (auto) 0.8 %; Eosinophils # (auto) 0.56 K/uL (0.00-0.50); Eosinophils % (auto) 3.9 %; Immature Granulocytes # (auto) 0.06 K/uL (0.01-0.20); Immature Granulocytes % (auto) 0.4 %; Lymphocytes # (auto) 5.45 K/uL (1.20-3.40); Monocytes # (auto) 0.64 K/uL (0.11-0.59); Monocytes % (auto) 4.5 %; Neutrophils % (auto) 52.4 %
[2024-10-23 02:24] LABS: Adenovirus PCR Not Detected (NotDetected); Bordetella parapertussis PCR Not Detected (NotDetected); Bordetella pertussis PCR Not Detected (NotDetected); Chlamydia pneumoniae PCR Not Detected (NotDetected); Coronavirus 229E PCR Not Detected (NotDetected); Coronavirus CoV-2 (COVID19)PCR Not Detected (NotDetected); Coronavirus HKU1 PCR Not Detected (NotDetected); Coronavirus NL63 PCR Not Detected (NotDetected); Coronavirus OC43PCR Not Detected (NotDetected); Human Metapneumovirus PCR Not Detected (NotDetected); Influenza A PCR Not Detected (NotDetected); Influenza B PCR Not Detected (NotDetected); Mycoplasma pneumoniae PCR Not Detected (NotDetected); Parainfluenza Virus 1 PCR Not Detected (NotDetected); Parainfluenza Virus 2 PCR Not Detected (NotDetected); Parainfluenza Virus 3 PCR Not Detected (NotDetected); Parainfluenza Virus 4 PCR Not Detected (NotDetected); Respiratory Syncytial VirusPCR Not Detected (NotDetected); Rhinovirus/Enterovirus PCR Not Detected (NotDetected)
--- NOTE | 2024-10-23 02:24 | History & Physical Report ---
Date of Service October 23, 2024 Assessment & Plan (1) Aspiration pneumonia: (2) Acute respiratory failure with hypoxia: (3) CAD (coronary artery disease): (4) Left bundle branch block: (5) Pulmonary edema: (6) Restrictive lung disease: (7) COPD (chronic obstructive pulmonary disease): (8) Presence of stent in coronary artery: (9) Admitted to intensive care unit: Plan: Acute respiratory failure with hypoxia/aspiration pneumonia/CHF exacerbation- Admit to intensive care unit Respiratory BioFire test negative Continue BiPAP per protocol with serial ABGs Methylprednisolone 125 mg IV now, then 40 mg IV every 8 hours Linezolid 600 mg IV now, and every 12 hours Zosyn 4.5 g IV now, and every 8 hours DuoNebs every 2 hours as needed Zofran 4 mg IV every 6 hours as needed Pantoprazole 40 mg IV twice daily Consult mine equipment design engineer and team CAD/hypertension/recent stented coronary artery/CHF exacerbation- Troponin 22.6, with BNP 3614 The patient will be admitted to the ICU for serial cardiac enzymes, serial EKG's, cardiac rhythm monitoring and a 2-D echocardiogram with Dopplers. Obtaining records from [facility] and from outpatient office of Dr. Oconnor Holding Brilinta, Entresto, metoprolol succinate, aspirin until episode of hemoptysis is clarified Pressure is presently borderline to be able to give diuretics, but will need to be diuresed Potassium 3.3 will get potassium chloride 10 mEq IV x 1 Consult cardiology Diabetes mellitus- Glucose 252 on admission Check hemoglobin A1c [facility] ICU glycemic protocol ordered Hyperlipidemia- Resume atorvastatin when able to take p.o. Check a fasting lipid panel Recent urinary tract infection/history of recurrent pyelonephritis/BPH with LUTS- Was placed on cephalexin empirically for urinary tract infection on 10/18/2024 Presently growing Vivian albicans and dubliniensis Follow sensitivities Wilkinson catheter History of Present Illness Chief Complaint: Per the patient's , he developed acute onset of shortness of breath, dyspnea on exertion, and coughed up a small blood clot, earlier this evening, after a day of shopping. She called 911, patient was brought to the emergency department for assessment. Primary Care Provider: Serena Boucher MD The patient is a 84-year-old male with a past medical history including coronary disease status post stent placement July 2024 in [facility], restrictive lung disease, COPD, ex smoker history of 40 years ago, recent pneumonia COVID-19 virus in July, hyperlipidemia, recent urinary tract infection, hypertension, impression dual antiplatelet therapy with Brilinta and aspirin. The patient was in his usual state of health, after recovering well from his stent placement in July, until he developed acute episode of shortness of breath, dyspnea on exertion, and single episode of coughing up blood clot earlier this evening. Is brought to the emergency department via EMS, was found to be in acute respiratory failure, received a dose of ketamine from the ED, was sent for stat CTs, and then was referred for evaluation for admission to [facility] and the ICU The patient himself is somewhat lethargic, is able to nod yes or no to questions, but most of his HPI and ROS are provided by family in attendance. Allergies Allergy/AdvReac Type Severity Reaction Status Date / Time No Known Allergies Allergy Unverified 10/18/24 15:28 Home Medications Medication Instructions Recorded Confirmed Type albuterol sulfate 90 mcg/actuation 2 puff inhalation Q6H PRN 09/23/23 10/23/24 Rx aerosol inhaler Shortness Of Breath Or Wheezing #18 grams aspirin 81 mg tablet,delayed 81 mg PO DAILY 10/18/24 10/23/24 History release (Adult Aspirin Regimen) cephalexin 500 mg capsule 500 mg PO TID 7 days #21 caps 10/18/24 10/23/24 Rx atorvastatin 40 mg tablet 40 mg PO HS 10/23/24 10/23/24 History citalopram 10 mg tablet 10 mg PO DAILY 10/23/24 10/23/24 History dapagliflozin propanediol 10 mg 10 mg PO DAILY 10/23/24 10/23/24 History tablet (Farxiga) furosemide 20 mg tablet 20 mg PO DAILY 10/23/24 10/23/24 History metoprolol succinate 50 mg 50 mg PO DAILY 10/23/24 10/23/24 History tablet,extended release 24 hr sacubitril 49 mg-valsartan 51 mg 1 tab PO BID 10/23/24 10/23/24 History tablet (Entresto) ticagrelor 90 mg tablet (Brilinta) 90 mg PO BID 10/23/24 10/23/24 History Past Med/Surg History Problem List (Updated 10/23/24 @ 04:04 by Sundeep Ortiz MD) Admitted to intensive care unit Presence of stent in coronary artery Aspiration pneumonia (Acute) WOJCIECH (acute kidney injury) (Acute) Left bundle branch block (Acute) CAD (coronary artery disease) (Acute) Pulmonary edema (Acute) Abnormal chest x-ray Restrictive lung disease COPD (chronic obstructive pulmonary disease) (Acute) Ex-smoker Acute respiratory failure with hypoxia (Acute) Shortness of breath Pneumonia due to COVID-19 virus COVID-19 No significant past surgical history No significant past medical history Family History Other No significant family history Social History Smoking Status: Unknown if ever smoked Preferred Language: Yakut Feels Safe at Home: Yes Review of Systems Review of Systems: Review of systems as noted above, is provided by family in attendance Physical Exam Physical Exam: The patient is awake but sedated, mildly lethargic, able to nod answers to questions, normocephalic and atraumatic, presently wearing BiPAP mask, lying in bed and in no acute distress. HEENT--PERRL, EOMI, mucous membranes and oropharynx dry. Neck--supple. No JVD. No bruits. Thyroid normal, trachea midline, no adenopathy. Heart--normal S1 and S2. No murmurs, rubs or gallops. Lungs--coarse breath sounds bilaterally, with wheezes. Mild to moderate respiratory distress improved on BiPAP. No accessory muscle use. Abdomen--normal bowel sounds and soft. Nontender. Nondistended. Mildly tympanitic Extremities--no cyanosis or clubbing. No edema. Dermatologic--normal skin turgor, normal color, no abnormal lymph nodes, no rash. Neurologic--cranial nerves II through XII grossly intact. Rheumatologic--limited exam Psychiatric--lethargic post ketamine Results & Data Results & Data Vital Signs (Past 12 Hours) Vital Signs Temp Pulse Pulse Resp BP BP Pulse Ox 10/23/24 01:21 36.5 C 119 H 90 10/23/24 01:20 158/110 H 10/23/24 01:20 158/110 H 10/23/24 01:19 116 H 35 H 89 L 10/23/24 01:18 36.4 C L 116 H 91 10/23/24 01:16 93 10/23/24 01:10 149/104 H 10/23/24 01:10 149/104 H 10/23/24 01:10 149/104 H 10/23/24 01:06 35.8 C L 10/23/24 01:06 122 H 30 H 158/111 H 93 10/23/24 01:02 10/23/24 01:00 132 H 10/23/24 00:59 117 H 32 H 146/95 H 91 10/23/24 00:45 130 H 35 H 64 L O2 Del Method FiO2 10/23/24 01:21 10/23/24 01:20 10/23/24 01:20 10/23/24 01:19 100 10/23/24 01:18 BiPAP 10/23/24 01:16 BiPAP 10/23/24 01:10 10/23/24 01:10 10/23/24 01:10 10/23/24 01:06 10/23/24 01:06 BiPAP 10/23/24 01:02 BiPAP 10/23/24 01:00 10/23/24 00:59 10/23/24 00:45 BiPAP Laboratory Results Laboratory Results WBC 14.33 K/ul (4.8-10.8) H 10/23/24 01:15 RBC 5.01 M/uL (4.70-6.10) 10/23/24 01:15 Hgb 15.8 g/dl (14.0-18.0) 10/23/24 01:15 POC Hgb 14.3 g/dl (14.0-18.0) 10/23/24 02:01 Hct 49.6 % (42.0-52.0) 10/23/24 01:15 POC Hct 42 % (42-52) 10/23/24 02:01 MCV 99.0 fL (80.0-100.0) 10/23/24 01:15 MCH 31.5 pg (25.0-34.0) 10/23/24 01:15 MCHC 31.9 g/dL (32.0-36.0) L 10/23/24 01:15 RDW Std Deviation 49.1 fL (36.4-46.3) H 10/23/24 01:15 RDW Coeff of Dinah 13.5 % (11.5-14.5) 10/23/24 01:15 Plt Count 301 K/uL (130-400) 10/23/24 01:15 MPV 9.6 fL (9.4-12.4) 10/23/24 01:15 Immature Gran % (Auto) 0.4 % 10/23/24 01:15 Neut % (Auto) 52.4 % 10/23/24 01:15 Lymph % (Auto) 38.0 % 10/23/24 01:15 Garrard % (Auto) 4.5 % 10/23/24 01:15 Eos % (Auto) 3.9 % 10/23/24 01:15 Baso % (Auto) 0.8 % 10/23/24 01:15 Neut # (Auto) 7.50 K/uL (1.40-6.50) H 10/23/24 01:15 Lymph # (Auto) 5.45 K/uL (1.20-3.40) H 10/23/24 01:15 Garrard # (Auto) 0.64 K/uL (0.11-0.59) H 10/23/24 01:15 Eos # (Auto) 0.56 K/uL (0.00-0.50) H 10/23/24 01:15 Baso # (Auto) 0.12 K/uL (0.00-0.20) 10/23/24 01:15 Immature Gran # (Auto) 0.06 K/uL (0.01-0.20) 10/23/24 01:15 PT 11.2 Seconds (9.0-12.0) 10/23/24 01:16 INR 1.0 (0.9-1.1) 10/23/24 01:16 APTT 28 Seconds (21-31) 10/23/24 01:16 PTT Ratio 1.0 10/23/24 01:16 POC pH 7.32 (7.35-7.45) L 10/23/24 02:01 POC pCO2 33 mmHg (35-46) L 10/23/24 02:01 POC pO2 59 mmHg (80-95) L 10/23/24 02:01 POC HCO3 17 osmar/L (19-24) L 10/23/24 02:01 POC Total CO2 18 mmol/L (24-31) L 10/23/24 02:01 POC Base Excess -9.0 osmar/L (-9-1.8) 10/23/24 02:01 POC ABG O2 Sat 88.0 % (90-95) L 10/23/24 02:01 VBG pH 7.29 (7.36-7.41) L 10/23/24 02:38 VBG pCO2 47 mmHg (38-50) 10/23/24 02:38 VBG pO2 20 mmHg 10/23/24 02:38 VBG HCO3 23 mmol/L 10/23/24 02:38 VBG O2 Saturation < 60.0 % 10/23/24 02:38 VBG Base Excess -4.2 mEq/L 10/23/24 02:38 POC Sodium 135 mmol/L (135-144) 10/23/24 02:01 Sodium 137 mmol/L (136-145) 10/23/24 01:15 POC Potassium 2.7 mmol/L (3.3-5.0) L 10/23/24 02:01 Potassium 3.3 mmol/L (3.5-5.1) L 10/23/24 01:15 POC Chloride 105 mmol/L (101-112) 10/23/24 01:02 Chloride 102 mmol/L (98-107) 10/23/24 01:15 Carbon Dioxide 17 mmol/L (21-32) L 10/23/24 01:15 POC Total CO2 18 mmol/L (24-31) L 10/23/24 01:02 Anion Gap 18 (3-11) H 10/23/24 01:15 POC Anion Gap 19.0 mmol/L (16-25) 10/23/24 01:02 POC BUN 19 mg/dl (7-18) H 10/23/24 01:02 BUN 19 mg/dl (6-23) 10/23/24 01:15 Creatinine 1.74 mg/dl (0.6-1.4) H 10/23/24 01:15 POC Creatinine 1.8 mg/dl (0.6-1.3) H 10/23/24 01:02 Est Cr Clr Drug Dosing 25.5 ml/min 10/23/24 01:15 eGFR 38.66 10/23/24 01:15 BUN/Creatinine Ratio 10.9 (10-20) 10/23/24 01:15 Glucose 252 mg/dl (70-99(Fasting)) H 10/23/24 01:15 POC Glucose (other) 237 mg/dl (70-99) H 10/23/24 01:02 Lactate 2.8 mmol/L (0.4-2.0) H* 10/23/24 02:38 Calcium 9.2 mg/dl (8.6-10.3) 10/23/24 01:15 POC Ioniz Calcium Arjun 1.16 mmol/l (1.12-1.32) 10/23/24 01:02 Magnesium 2.2 mg/dl (1.7-2.4) 10/23/24 01:15 Total Bilirubin 0.4 mg/dl (0.2-1.0) 10/23/24 01:15 AST 17 U/L (13-39) 10/23/24 01:15 ALT 11 U/L (7-52) 10/23/24 01:15 Alkaline Phosphatase 121 U/L (34-104) H 10/23/24 01:15 Troponin I High Sens 135.0 pg/ml (0-20) H* D 10/23/24 02:38 B-Natriuretic Peptide 3614 pg/ml (0-100) H 10/23/24 01:18 Total Protein 7.3 gm/dl (6.0-8.3) 10/23/24 01:15 Albumin 3.8 gm/dl (3.4-5.0) 10/23/24 01:15 Globulin 3.5 gm/dl (2.5-4.0) 10/23/24 01:15 Albumin/Globulin Ratio 1.1 (0.9-2) 10/23/24 01:15 Lipase 34 U/L (11-82) 10/23/24 01:15 Procalcitonin < 0.02 ng/ml (0-0.5) 10/23/24 01:00 Random Cortisol 28.24 mcg/dl 10/23/24 02:43 Urine Color Yellow 10/23/24 01:05 Urine Appearance Clear (Clear) 10/23/24 01:05 Urine pH 6.0 (4.5-7.5) 10/23/24 01:05 Ur Specific [place] 1.008 (1.000-1.030) 10/23/24 01:05 Urine Protein Trace (Negative) H 10/23/24 01:05 Urine Glucose (UA) Negative (Negative) 10/23/24 01:05 Urine Ketones Negative (Negative) 10/23/24 01:05 Urine Blood Trace (Negative) H 10/23/24 01:05 Urine Nitrite Negative (Negative) 10/23/24 01:05 Urine Bilirubin Negative (Negative) 10/23/24 01:05 Urine Urobilinogen Negative (Negative) 10/23/24 01:05 Ur Leukocyte Esterase 1+ (Negative) H 10/23/24 01:05 Urine WBC (Auto) 6-10 /hpf (0-5) H 10/23/24 01:05 Urine RBC (Auto) 3-5 /hpf (0-2) H 10/23/24 01:05 U Hyaline Cast (Auto) 0-2 /lpf (0-2) 10/23/24 01:05 U Epithel Cells (Auto) 0-2 /hpf (0-2) 10/23/24 01:05 Urine Bacteria (Auto) None Seen (None Seen) 10/23/24 01:05 Adenovirus (PCR) Not Detected (NotDetected) 10/23/24 01:15 B. pertussis DNA (PCR) Not Detected (NotDetected) 10/23/24 01:15 B.parapertussis DNA PCR Not Detected (NotDetected) 10/23/24 01:15 C. pneumoniae DNA (PCR) Not Detected (NotDetected) 10/23/24 01:15 Coronavirus OC43 (PCR) Not Detected (NotDetected) 10/23/24 01:15 Coronavirus HKU1 (PCR) Not Detected (NotDetected) 10/23/24 01:15 Coronavirus 229E (PCR) Not Detected (NotDetected) 10/23/24 01:15 SARS-CoV-2 (PCR) Not Detected (NotDetected) 10/23/24 01:15 Coronavirus NL63 (PCR) Not Detected (NotDetected) 10/23/24 01:15 Human Metapneumovir PCR Not Detected (NotDetected) 10/23/24 01:15 Influenza Type A (PCR) Not Detected (NotDetected) 10/23/24 01:15 Influenza Type B (PCR) Not Detected (NotDetected) 10/23/24 01:15 M. pneumoniae (PCR) Not Detected (NotDetected) 10/23/24 01:15 Parainfluenza 1 (PCR) Not Detected (NotDetected) 10/23/24 01:15 Parainfluenza 2 (PCR) Not Detected (NotDetected) 10/23/24 01:15 Parainfluenza 3 (PCR) Not Detected (NotDetected) 10/23/24 01:15 Parainfluenza 4 (PCR) Not Detected (NotDetected) 10/23/24 01:15 RSV (PCR) Not Detected (NotDetected) 10/23/24 01:15 Entero/Rhino (PCR) Not Detected (NotDetected) 10/23/24 01:15 Impressions Abdomen/Pelvis CT 10/23/24 01:16 EXAM: CT abd pelvis IV con only CLINICAL HISTORY: acute resp fail, r/o PE, ams, wojciech, 120 ml optiray 320 TECHNIQUE: Contiguous axial images were obtained from the level of the diaphragm to the pubic symphysis following intravenous administration of contrast material. Coronal and sagittal reconstructions were likewise performed and indicated to increase the sensitivity for detecting clinically relevant pathology. If IV contrast material had not been administered, the likelihood of detecting abnormalities relevant to the patient's condition would have been substantially decreased. CT scan was performed according to ALARA (as low as reasonable achievable). COMPARISON: None. FINDINGS: The visualized lung bases show confluent centrilobular emphysema with patchy consolidation. The liver shows two small subcentimetric cysts in segment II and VIII. No other focal liver lesions are seen. There is no intra or extrahepatic biliary ductal dilatation. Hepatic vasculature is patent. The gallbladder is unremarkable. The spleen, pancreas, and adrenal glands are unremarkable. The kidneys are normal in size and attenuation with a subcentimetric simple cyst at the upper pole of left kidney. There is no hydronephrosis or perinephric fat stranding. The ureters are normal in caliber. The urinary bladder is empty with Wilkinson's catheter in situ. The prostate is grossly enlarged. No focal or diffuse bowel wall thickening or evidence of bowel obstruction is identified. No inflamed appendix is visualized in the right lower quadrant. Extensive atherocalcific plaques noted in the abdominal aorta. Left small fat-containing inguinal hernia is noted. No aggressive appearing osseous lesions are identified. IMPRESSION: 1. Confluent centrilobular emphysema with patchy consolidation in visualized lung bases. 2. Prostatomegaly - ultrasound correlation recommended 3. Left fat-containing small inguinal hernia Electronically signed by Gilberto Middleton 10-23-2024 03:[address] 10/23/24 01:16 EXAM: CT head/brain wo con CLINICAL HISTORY: acute resp fail, r/o PE, ams, wojciech, 120 ml optiray 320 TECHNIQUE: Multiple axial images are obtained from the skull base to the vertex without contrast. CT scan was performed according to ALARA (as low as reasonable achievable). COMPARISON: None. FINDINGS: There is cerebral atrophy. No evidence of space occupying lesion, hemorrhage, edema, mass effect, midline shift, extra axial collection, or hydrocephalus is noted. Basal cisterns are symmetric and normal in size and configuration. There are scattered periventricular hypodensities as can be seen with chronic microvascular ischemic changes. The lund-white matter differentiation is preserved. Visualized paranasal sinuses and mastoid air cells are well aerated. Orbital contents are within normal limits. Bony structures are intact. IMPRESSION: 1. Chronic microvascular ischemic changes. 2. Cerebral atrophy. 3. No evidence of acute intracranial abnormality. Electronically signed by Gilberto Middleton 10-23-2024 02:59 AM Code Status & VTE Plan Code Status Full code VTE Prophylaxis Plan VTE Prophylaxis will be ordered: Yes Critical Care Time 55 minutes PG Care Time/CCT Total # of Minutes Spent Total Time Spent with Patient: Total time spent is greater than 50% in coordination of care (as documented) at patient's floor/unit and/or counseling patient: Coding Level of Care Code 06888 INT INP/OBS CARE 3/75MIN Diagnoses Aspiration pneumonia J69.0 Acute respiratory failure with hypoxia J96.01 CAD (coronary artery disease) I25.10 Left bundle branch block I44.7 Pulmonary edema J81.1 Restrictive lung disease J98.4 Centrilobular emphysema J44.9 Presence of stent in coronary artery Z95.5 Admitted to intensive care unit Z78.9
[2024-10-23] MEDS: LINEZOLID 600 MG/300 ML BAG IV STA (02:34)
[2024-10-23 02:53] LABS: Base Excess VBG -4.2 mEq/L; HCO3 VBG 23 mmol/L; Oxygen Saturation VBG < 60.0 %; PCO2 VBG 47 mmHg (38-50); PO2 VBG 20 mmHg; pH VBG 7.29 (7.36-7.41)
--- NOTE | 2024-10-23 03:01 | CT Scan Report ---
EXAM: CT head/brain wo con CLINICAL HISTORY: acute resp fail, r/o PE, ams, wojciech, 120 ml optiray 320 TECHNIQUE: Multiple axial images are obtained from the skull base to the vertex without contrast. CT scan was performed according to ALARA (as low as reasonable achievable). COMPARISON: None. FINDINGS: There is cerebral atrophy. No evidence of space occupying lesion, hemorrhage, edema, mass effect, midline shift, extra axial collection, or hydrocephalus is noted. Basal cisterns are symmetric and normal in size and configuration. There are scattered periventricular hypodensities as can be seen with chronic microvascular ischemic changes. The lund-white matter differentiation is preserved. Visualized paranasal sinuses and mastoid air cells are well aerated. Orbital contents are within normal limits. Bony structures are intact. IMPRESSION: 1. Chronic microvascular ischemic changes. 2. Cerebral atrophy. 3. No evidence of acute intracranial abnormality. Electronically signed by Gilberto Middleton 10-23-2024 02:59 AM
--- NOTE | 2024-10-23 03:12 | Critical Care Consultation ---
Date of Consultation October 23, 2024 Assessment & Plan (1) Acute respiratory failure with hypoxia: (2) Required emergent intubation: (3) CAD (coronary artery disease): (4) Hyperglycemia: (5) WOJCIECH (acute kidney injury): Plan Reason Critically Ill: 84 YOM presents to the ER for hypoxic respiratory failure and concern for hemoptysis, patient initially tolerated BiPAP and had improved RR, SPO2, Tachycardia, arrival to ICU patient with acute decopensation with vomiting and coughing- poor reserve and high risk for decompensating further therefore was intubated. DDX at this time is cardiogenic pulmonary edema vs. DAH vs. infective or combination of any of the above. Neuro - Sedation for mechanical ventilation, anxiety CAM ICU: NEGATIVE prior to sedation and intubation - Sedation at this time will be with fentanyl infusion and versed PRN - avoid negative chronotropic effects of Precedex and propofol until further evaluated with ECHO - restraints to bilateral upper extremities Cardiac - Elevated HsCTNI, CAD with stents, HFrEF - Patient presents with concern of hemoptysis and hypoxia in setting of elevated BNP and mildly elevated HsCTNI - ECG is without obvious STEMI- He is with ST depressions and incomplete LBB- reviewing records from most recent cardiology note appears this was his change since July - last ECG we have for review is 2020 - Previous ACS in July where he did require emergent intubation and placement of IABP and appears as reported stents to RCA and left main - Continue to trend HsCTNI and ECGS here- repeat ECG this morning improved in aspect of ST changes - ECHO in morning - Elevation of HsCTNI at this time likely related to demand in setting of hypoxia and tachycardia - Will need to consider adding heparin in this patient if he is unable to maintain being on his ASA and Brilinta- - Hold Entresto - Hold BB until hemodynamics proven stable - Diurese with 20mg of Lasix at this time- follow hemodynamics and increase diuresis as able - Bedside POCUS performed- limited by device and technique- no pericardial effusion noted, contractility appears decreased in septal and apex- trend Trops, ECG, and obtain formal ECHO Respiratory - Pulmonary edema with small effusions, hypoxic respiratory failure requiring emergent intubation, Abnormal CT chest, COPD- Emphysema, respiratory acidosis - Concern for hemoptysis and acute pulmonary edema- CT scan with bilateral patchy infiltrates as well as GGO - At this time pulmonary edema may be from SCAPE like picture with anxiety and elevated blood pressures - on intubation appears that pink tinged vomitus and secretions likely coming from stomach as no blood appreciated at vocal chords and none noted upon suctioning following intubation - Concern for DAH vs. Pulmonary edema vs. infectious cause- once stabilized on the ventilator and able to wean down PEEP/FIO2, bronchoscopy evaluation may be considered for inspection and/or cultures - COPD with emphysema- wean PEEP and FIO2 for SPO2 88-92% - CO2 elevated post intubation- increase VT as well as RR - re-evaluation 20 min following changes - Continue with abx at this time with piperacillin and Linezolid - Not overtly wheezing on exam- and at this time don't feel this is acute COPD exacerbation- likely discontinue IV steroids- discuss with attending this morning - Pulmonary POCUS with b lines noted- diurese as above GI - Dilated stomach, OGT placed - with vomiting- can't exclude possibility of GI bleed at this time with pink/maroon tinged aspirate - PPI BID - Trend HGB/HCT RENAL/LYTES - WOJCIECH, Respiratory and Metabolic Acidosis - WOJCIECH - follow closely with contrast and diuretics - renal dose medications - Metabolic acidosis improved, however post intubation with respiratory acidosis- vent adjusted - follow recheck- consider HCO3 if no improvement in PH - AGAP acidosis- likely related to increase in lactate and renal function - Wilkinson to gravity enlarged prostate on imaging - continue with Wilkinson to gravity ENDO - hyperglycemia - unlikely DKA with BG in 200s, however noted that he is on Farxiga- HCO3 improved and now with predominantly respiratory acidosis - ICU hyperglycemia protocol - if acidosis remains will place on insulin infusion HEME - - stable HGB and HCT on arrival- do note light pinkish drainage from OGT- trend continue PPI - May need heparin infusion as above ID - Can't full exclude infectious aspect of lungs - WBC elevated, increase in oxygenation, sputum change, opacifications on imaging- PCT negative - with GGO and history of COVID x2 difficult to ascertain at this time what is chronic fibrotic changes as no available prior CT to compare - continue with Zosyn and linezolid (if MRSA negative can likely discontinue), Azithromycin for atypical- consider PJP - discuss on rounds this morning. LINES/IV ACCESS - PIV x2, ETT, OGT, Wilkinson, IO Continue use of these lines- discontinue IO DVT PROPHYLAXIS - SCDS, ASA, Brilinta DISPO: ICU while intubated and sedated requiring mechanical ventilation I have personally spent 65 minutes of critical care time in the direct management of this patient. This is a life/limb threatening event. This includes time spent evaluating patient, direct bedside care, chart review, placing orders, interpretation of diagnostic studies, discussion with consultants, patient, and family members, as well as other required patient management activities. This time is exclusive of all separately billable procedures, and separate from and in addition to any other critical care service time. Thank you for allowing us to participate in the care of this patient. Please refer to my attending physician's documentation for any further recommendations. Supervising Physician Co-Signing Physician Notes Patient seen and examined. EMR reviewed. Discussed with critical care RHONDA as well as with bedside critical care nurse and on multidisciplinary rounds. 84-year-old male with underlying structural lung disease baseline severity unknown. Last PFTs in our system were performed in December 2021. Mild restriction with severe decrease in diffusion capacity was noted at that time. He underwent cardiac catheterization with drug-eluting stent placement 2 months ago in [place]. He presented with acute onset of shortness of breath and diffuse parenchymal opacities. Unclear what his baseline chest x-ray looks li ke. He initially was placed on noninvasive positive pressure ventilation but deteriorated and was subsequently intubated. This morning performed bronchoscopy. Airways were clear. Endotracheal tube in good position. See separate note. Bronchoalveolar lavage performed in the right middle lobe. No evidence of significant pulmonary hemorrhage. Fluid was sent for microbiologic as well as cytologic analysis. Continue mechanical ventilation. Discontinue steroids as of unclear what we are treating at this point in time. Continue broad-spectrum antibiotics (discontinue linezolid given the fact patient was on SSRI previously). Await cytology and microbiologic analysis. Dietary consult for initiation of enteral nutritional support. Await echocardiogram and cardiology evaluation. Patient may benefit from right heart catheterization. Diuresis as tolerated. Patient's intubation was complicated by administration of RSI medications through a malpositioned IV and extravasation. Continue to follow left upper extremity. No vasoactive medications were extravasated. Family updated by RHONDA. Will continue to follow in ICU. Patient remains critically ill. An additional 45 minutes of critical care time was spent evaluation management coordination of care for this patient History of Present Illness Reason for Consultation: hypoxic respiratory failure Requesting Physician: Sundeep Ortiz MD Attending Physician: Sundeep Ortiz MD History of Present Illness 84 YOM with medical history of: CAD with stenting Jul 2024 ([facility]), HFrEF (25% with global hypokinesis) COPD, COVID 19 x2, elevated blood glucose. Patient came to the ER today via EMS. EMS was called at home for acute shortness of breath hemoptysis and hypoxia. He was given Ketamine en route to assist with tolerance of NIPPV. He was felt improved with the NIPPV and intubation was deferred on arrival. and daughter are at bedside. They report that the patient was doing well all day today and actually wanted to go shopping, however around 2200 he started with acute "wet sounding" cough that was also accompanied by blood tinged sputum with clots, which was reported as quarter sized by the . The patient did not report any chest pain per the , but did say he stated that he didn't know what was going on and thought he may be having another heart attack. He was noted to be significantly hypertensive on transport, did receive NTG SL. In the ER he had routine labs performed, ECG, CTA of the chest, CT abd/pelvis and CT head performed. Labs revealed notable for elevated BNP 3614, lactate 2.8, troponin 22.6, HCO3 of 17. He was given steroids in EMD, Zosyn. Patient initially evaluated in the ER with adequate BP, was tolerating his BiPAP, and was communicating well. On arrival to the ICU the patient was pulling at his mask and stated he felt nauseated, he started to have emesis that was pink blood tinged and thin. He had decrease in oxygenation levels to the 80s. He was given zofran, 0.5mg of Ativan, following this he was able to be calmed down and BIPAP mask was held in place with increase in his spo2 levels. Patient again demonstrated poor reserve and high risk for aspiration as well as high risk for respiratory failure/arrest, for this reason he was subsequently intubated (see separate procedure note). Patient will remain in ICU, intubated sedated, will diurese at this time. ECG with partial LBBB and ST depressions, have the admitting team obtaining further records from [facility]. Concern at this time would be for pulmonary edema vs. DAH vs. aspiration vs. infectious source vs. NSTEMI. CODE: FULL Allergies Allergy/AdvReac Type Severity Reaction Status Date / Time No Known Allergies Allergy Unverified 10/18/24 15:28 Home Medications Medication Instructions Recorded Confirmed Type albuterol sulfate 90 mcg/actuation 2 puff inhalation Q6H PRN 09/23/23 10/23/24 Rx aerosol inhaler Shortness Of Breath Or Wheezing #18 grams aspirin 81 mg tablet,delayed 81 mg PO DAILY 10/18/24 10/23/24 History release (Adult Aspirin Regimen) cephalexin 500 mg capsule 500 mg PO TID 7 days #21 caps 10/18/24 10/23/24 Rx atorvastatin 40 mg tablet 40 mg PO HS 10/23/24 10/23/24 History citalopram 10 mg tablet 10 mg PO DAILY 10/23/24 10/23/24 History dapagliflozin propanediol 10 mg 10 mg PO DAILY 10/23/24 10/23/24 History tablet (Farxiga) furosemide 20 mg tablet 20 mg PO DAILY 10/23/24 10/23/24 History metoprolol succinate 50 mg 50 mg PO DAILY 10/23/24 10/23/24 History tablet,extended release 24 hr sacubitril 49 mg-valsartan 51 mg 1 tab PO BID 10/23/24 10/23/24 History tablet (Entresto) ticagrelor 90 mg tablet (Brilinta) 90 mg PO BID 10/23/24 10/23/24 History Patient History Medical History (Updated 10/23/24 @ 07:13 by Anjel Sears MD) Left bundle branch block Restrictive lung disease COPD (chronic obstructive pulmonary disease) Ex-smoker Shortness of breath Pneumonia due to COVID-19 virus COVID-19 Surgical History (Updated 10/23/24 @ 04:41 by LASHAWN Galindo) Presence of stent in coronary artery Family History Other No significant family history Social History Smoking Status: Former smoker Do You Dip or Chew Tobacco: No; Hx Alcohol Use: No Hx Substance Use: No Preferred Language: Estonian Communication Ability: Effective Core Filer Required: No Beliefs That Will Affect Care: None Current Living Situation: Spouse Current Living Situation Comment: with Other Information That Helps Us Care for You: No Feels Safe at Home: Yes Safety Concerns: Feels Safe At This Time Assistive Devices: Denture - Upper, Denture - Lower and Glasses Review of Systems Review of Systems: REVIEW OF SYSTEMS: Constitutional: No fever, sweats or chills Eyes: No diplopia, no worsening or blurred vision ENT: + Difficulty hearing, upper and lower dentures Respiratory: (+) cough, sputum, dyspnea at rest or on exertion Cardiovascular: No chest pain, tightness or palpitations Abdomen: No pain, nausea, vomiting, diarrhea or constipation Musculoskeletal: No joint pain, calf pain, swelling Neurologic: No weakness, numbness/tingling, or balance problems Psychiatric: No anxiety or depression Skin: No rash or itch Physical Exam Physical Exam: PHYSICAL EXAM: General: awake, alert, anxious Head: Normocephalic, atraumatic ENT: PERRLA, EOMI, no pharyngeal exudate, mucous membranes moist Neuro: Prior to intubation, AAO x 3, speech clear and appropriate, strength intact bilaterally 5/5, sensation intact and equal all extremities no pronator drift Chest: equal rise and fall of the chest, accessory muscle use, Clear bilaterally through all lung [place] with end expiratory wheeze, on Bi-PAP Cardiac: Regular rate and rhythm, telemetry reviewed- NSR no ectopy, skin warm dry, cap refill ~3 seconds, peripheral pulses +2, + JVD, no murmur, no edema GI: NABS x 4 quadrants, soft, nontender to palpation, no rebound, guarding or tenderness : Wilkinson to gravity draining dilute yellow urine Extremities: Normal inspection, no peripheral edema or erythema, calfs nontender to palpation Psych: Normal mood and affect Skin: dusky nailbeds, bruises, multiple gauze sites from IV sticks, IO Left tibial Results & Data Results & Data Vital Signs (Past 12 Hours) Vital Signs Temp Pulse Pulse Resp BP BP Pulse Ox 10/23/24 02:42 36.6 C 97 H 26 H 89 L 10/23/24 02:40 105/73 10/23/24 02:36 36.6 C 96 H 26 H 90 10/23/24 02:30 36.6 C 95 H 27 H 90 10/23/24 02:30 99/72 L 10/23/24 02:30 99/72 L 10/23/24 02:27 36.6 C 96 H 26 H 90 10/23/24 02:23 100/69 10/23/24 02:23 100/69 10/23/24 02:23 100/69 10/23/24 02:12 36.5 C 98 H 26 H 89 L 10/23/24 02:03 36.4 C L 100 H 27 H 90 10/23/24 02:00 122/85 10/23/24 01:57 36.4 C L 100 H 27 H 89 L 10/23/24 01:51 36.3 C L 100 H 27 H 91 10/23/24 01:50 131/87 10/23/24 01:50 131/87 10/23/24 01:50 131/87 10/23/24 01:50 131/87 10/23/24 01:21 36.5 C 119 H 90 10/23/24 01:20 158/110 H 10/23/24 01:20 158/110 H 10/23/24 01:19 116 H 35 H 89 L 10/23/24 01:18 36.4 C L 116 H 91 10/23/24 01:16 93 10/23/24 01:10 149/104 H 10/23/24 01:10 149/104 H 10/23/24 01:10 149/104 H 10/23/24 01:06 35.8 C L 10/23/24 01:06 122 H 30 H 158/111 H 93 10/23/24 01:02 10/23/24 01:00 132 H 10/23/24 00:59 117 H 32 H 146/95 H 91 10/23/24 00:45 130 H 35 H 64 L O2 Del Method FiO2 10/23/24 02:42 10/23/24 02:40 10/23/24 02:36 10/23/24 02:30 10/23/24 02:30 10/23/24 02:30 10/23/24 02:27 10/23/24 02:23 10/23/24 02:23 10/23/24 02:23 10/23/24 02:12 10/23/24 02:03 10/23/24 02:00 10/23/24 01:57 10/23/24 01:51 10/23/24 01:50 10/23/24 01:50 10/23/24 01:50 10/23/24 01:50 10/23/24 01:21 10/23/24 01:20 10/23/24 01:20 10/23/24 01:19 100 10/23/24 01:18 BiPAP 10/23/24 01:16 BiPAP 10/23/24 01:10 10/23/24 01:10 10/23/24 01:10 10/23/24 01:06 10/23/24 01:06 BiPAP 10/23/24 01:02 BiPAP 10/23/24 01:00 10/23/24 00:59 10/23/24 00:45 BiPAP Laboratory Results Abnormal lab results 10/23/24 10/23/24 10/23/24 Range/Units 01:02 01:05 01:15 WBC 14.33 H (4.8-10.8) K/ul MCHC 31.9 L (32.0-36.0) g/dL RDW Std Deviation 49.1 H (36.4-46.3) fL Neut # (Auto) 7.50 H (1.40-6.50) K/uL Lymph # (Auto) 5.45 H (1.20-3.40) K/uL [place] # (Auto) 0.64 H (0.11-0.59) K/uL Eos # (Auto) 0.56 H (0.00-0.50) K/uL POC pH (7.35-7.45) POC pCO2 (35-46) mmHg POC pO2 (80-95) mmHg POC HCO3 (19-24) osmar/L POC ABG O2 Sat (90-95) % VBG pH (7.36-7.41) POC Potassium 3.2 L (3.3-5.0) mmol/L Potassium 3.3 L (3.5-5.1) mmol/L Carbon Dioxide 17 L (21-32) mmol/L POC Total CO2 18 L (24-31) mmol/L Anion Gap 18 H (3-11) POC BUN 19 H (7-18) mg/dl Creatinine 1.74 H (0.6-1.4) mg/dl POC Creatinine 1.8 H (0.6-1.3) mg/dl Glucose 252 H (70-99(Fasting)) mg/dl POC Glucose (other) 237 H (70-99) mg/dl Lactate (0.4-2.0) mmol/L Alkaline Phosphatase 121 H (34-104) U/L Troponin I High Sens 22.6 H (0-20) pg/ml B-Natriuretic Peptide (0-100) pg/ml Urine Protein Trace H (Negative) Urine Blood Trace H (Negative) Ur Leukocyte Esterase 1+ H (Negative) Urine WBC (Auto) 6-10 H (0-5) /hpf Urine RBC (Auto) 3-5 H (0-2) /hpf 10/23/24 10/23/24 10/23/24 Range/Units 01:18 02:01 02:38 WBC (4.8-10.8) K/ul MCHC (32.0-36.0) g/dL RDW Std Deviation (36.4-46.3) fL Neut # (Auto) (1.40-6.50) K/uL Lymph # (Auto) (1.20-3.40) K/uL [place] # (Auto) (0.11-0.59) K/uL Eos # (Auto) (0.00-0.50) K/uL POC pH 7.32 L (7.35-7.45) POC pCO2 33 L (35-46) mmHg POC pO2 59 L (80-95) mmHg POC HCO3 17 L (19-24) osmar/L POC ABG O2 Sat 88.0 L (90-95) % VBG pH 7.29 L (7.36-7.41) POC Potassium 2.7 L (3.3-5.0) mmol/L Potassium (3.5-5.1) mmol/L Carbon Dioxide (21-32) mmol/L POC Total CO2 18 L (24-31) mmol/L Anion Gap (3-11) POC BUN (7-18) mg/dl Creatinine (0.6-1.4) mg/dl POC Creatinine (0.6-1.3) mg/dl Glucose (70-99(Fasting)) mg/dl POC Glucose (other) (70-99) mg/dl Lactate 2.8 H* (0.4-2.0) mmol/L Alkaline Phosphatase (34-104) U/L Troponin I High Sens 135.0 H* D (0-20) pg/ml B-Natriuretic Peptide 3614 H (0-100) pg/ml Urine Protein (Negative) Urine Blood (Negative) Ur Leukocyte Esterase (Negative) Urine WBC (Auto) (0-5) /hpf Urine RBC (Auto) (0-2) /hpf Diagnostic Findings Abdomen/Pelvis CT 10/23/24 01:16 EXAM: CT abd pelvis IV con only CLINICAL HISTORY: acute resp fail, r/o PE, ams, wojciech, 120 ml optiray 320 TECHNIQUE: Contiguous axial images were obtained from the level of the diaphragm to the pubic symphysis following intravenous administration of contrast material. Coronal and sagittal reconstructions were likewise performed and indicated to increase the sensitivity for detecting clinically relevant pathology. If IV contrast material had not been administered, the likelihood of detecting abnormalities relevant to the patient's condition would have been substantially decreased. CT scan was performed according to ALARA (as low as reasonable achievable). COMPARISON: None. FINDINGS: The visualized lung bases show confluent centrilobular emphysema with patchy consolidation. The liver shows two small subcentimetric cysts in segment II and VIII. No other focal liver lesions are seen. There is no intra or extrahepatic biliary ductal dilatation. Hepatic vasculature is patent. The gallbladder is unremarkable. The spleen, pancreas, and adrenal glands are unremarkable. The kidneys are normal in size and attenuation with a subcentimetric simple cyst at the upper pole of left kidney. There is no hydronephrosis or perinephric fat stranding. The ureters are normal in caliber. The urinary bladder is empty with Wilkinson's catheter in situ. The prostate is grossly enlarged. No focal or diffuse bowel wall thickening or evidence of bowel obstruction is identified. No inflamed appendix is visualized in the right lower quadrant. Extensive atherocalcific plaques noted in the abdominal aorta. Left small fat-containing inguinal hernia is noted. No aggressive appearing osseous lesions are identified. IMPRESSION: 1. Confluent centrilobular emphysema with patchy consolidation in visualized lung bases. 2. Prostatomegaly - ultrasound correlation recommended 3. Left fat-containing small inguinal hernia Electronically signed by Gilberto Middleton 10-23-2024 03:25 AM Chest CTA 10/23/24 01:16 EXAM: CT angio chest PE protocol CLINICAL HISTORY: acute resp fail, r/o PE, ams, wojciech, 120 ml optiray 320 TECHNIQUE: Contiguous 3.[address] angiographic images of the chest were acquired with the administration of intravenous contrast. Coronal and sagittal reconstructions were obtained. One of these 3D techniques was utilized: Maximum Intensity Pixel (MIP), 3D Reconstructed Images, Volume Rendered Images, Surface Shaded Rendering. One of the following dose reduction techniques were utilized for this exam: Automated exposure control, adjustment of the mA and/or kV according to patient size, and use of iterative reconstruction. CTDI: DLP: COMPARISON: None. FINDINGS: Aorta: Extensive atherocalcific plaques in aortic arch and descending thoracic aorta. No evidence of aneurysm, dissection, or significant atherosclerotic changes. Aortic arch and descending thoracic aorta are unremarkable. Pulmonary Arteries: Pulmonary arteries are normal in size and opacification. No evidence of pulmonary embolism. No stenosis or filling defects. Superior Vena Cava (SVC) and Inferior Vena Cava (IVC): Normal opacification and caliber. No evidence of thrombus or obstruction. Coronary Arteries: Coronary arteries are well-opacified. No significant stenosis or atherosclerotic changes. Mediastinum: No mediastinal mass or lymphadenopathy. Normal appearance of the thymus. Heart: Normal size and morphology of the heart. No pericardial effusion. Lungs: Visualized abdomen reveals few subcentimetric simple hepatic cyst in segment II and VIII. There is confluent centrilobular and substantial paraseptal emphysema in bilateral lung parenchyma. Patchy consolidation with interlobular septal thickening apicoposterior segment of left upper lobe, posterior segment of right upper lobe and bilateral lower lobes. Right mild pleural effusion, measuring up to 1.4 cm in thickness and left mild pleural effusion measuring up to 1 cm in thickness. Few fibrotic bands at apical segment of right upper lobe. No pleural effusion or thickening. Bones: No fractures or lytic/sclerotic lesions of the visualized bony structures. Normal alignment and bone density. Soft Tissues: Few enlarged mediastinal lymph nodes, largest of short axis diameter 1.3 cm at subcarinal location. No abnormal masses or fluid collections. IMPRESSION: 1. No evidence of pulmonary embolism. 2. Confluent centrilobular and substantial paraseptal emphysema in bilateral lung parenchyma. 3. Patchy consolidation with interlobular septal thickening at apicoposterior segment of left upper lobe, posterior segment of right upper lobe and bilateral lower lobes. 4. Right mild pleural effusion, measuring up to 1.4 cm in thickness and left mild pleural effusion measuring up to 1 cm in thickness. 5. Mediastinal lymphadenopathy, likely reactive. Electronically signed by Gilberto Middleton 10-23-2024 04:[address] 10/23/24 01:16 EXAM: CT head/brain wo con CLINICAL HISTORY: acute resp fail, r/o PE, ams, wojciech, 120 ml optiray 320 TECHNIQUE: Multiple axial images are obtained from the skull base to the vertex without contrast. CT scan was performed according to ALARA (as low as reasonable achievable). COMPARISON: None. FINDINGS: There is cerebral atrophy. No evidence of space occupying lesion, hemorrhage, edema, mass effect, midline shift, extra axial collection, or hydrocephalus is noted. Basal cisterns are symmetric and normal in size and configuration. There are scattered periventricular hypodensities as can be seen with chronic microvascular ischemic changes. The lund-white matter differentiation is preserved. Visualized paranasal sinuses and mastoid air cells are well aerated. Orbital contents are within normal limits. Bony structures are intact. IMPRESSION: 1. Chronic microvascular ischemic changes. 2. Cerebral atrophy. 3. No evidence of acute intracranial abnormality. Electronically signed by Gilberto Middleton 10-23-2024 02:59 AM Medications Administered Home Medications albuterol sulfate 90 mcg/actuation aerosol inhaler 2 puff inhalation Q6H PRN Shortness Of Breath Or Wheezing #18 grams 09/23/23 [Rx Confirmed 10/23/24] aspirin 81 mg tablet,delayed release (Adult Aspirin Regimen) 81 mg PO DAILY 10/18/24 [History Confirmed 10/23/24] cephalexin 500 mg capsule 500 mg PO TID 7 days #21 caps 10/18/24 [Rx Confirmed 10/23/24] atorvastatin 40 mg tablet 40 mg PO HS 10/23/24 [History Confirmed 10/23/24] citalopram 10 mg tablet 10 mg PO DAILY 10/23/24 [History Confirmed 10/23/24] dapagliflozin propanediol 10 mg tablet (Farxiga) 10 mg PO DAILY 10/23/24 [History Confirmed 10/23/24] furosemide 20 mg tablet 20 mg PO DAILY 10/23/24 [History Confirmed 10/23/24] metoprolol succinate 50 mg tablet,extended release 24 hr 50 mg PO DAILY 10/23/24 [History Confirmed 10/23/24] sacubitril 49 mg-valsartan 51 mg tablet (Entresto) 1 tab PO BID 10/23/24 [History Confirmed 10/23/24] ticagrelor 90 mg tablet (Brilinta) 90 mg PO BID 10/23/24 [History Confirmed 10/23/24] Active Medications Acetaminophen (Acetaminophen 1000 Mg/100 Ml Iv) 1,000 mg IV Q8H PRN PRN Reason: Pain or Fever Stop: 10/26/24 04:27 Albuterol (Albut/Ipratrop 3mg/0.5mg Neb 3 Ml Vial) 3 ml NEB Q2H PRN; Protocol PRN Reason: dyspnea Stop: 11/22/24 04:27 Dextrose (Dextrose 50% 50 Ml Syringe) 25 - 50 ml IV UD PRN; Protocol PRN Reason: Hypoglycemia Protocol Stop: 11/22/24 04:27 Fentanyl Citrate (Fentanyl Bolus From Bag) 50 mcg IV Q60M PRN PRN Reason: Pain or Agitation Stop: 11/06/24 04:40 Glucagon (Glucagon For Inj 1 Mg Vial) 1 mg SQ UD PRN; Protocol PRN Reason: Hypoglycemia Protocol Stop: 11/22/24 04:27 Glucose (Glucose 40% Gel 15 Gm Tube) 15 - 30 gm PO UD PRN; Protocol PRN Reason: Hypoglycemia Protocol Stop: 11/22/24 04:27 Glucose (Glucose 10 Tab/Tube) 4 - 8 tab PO UD PRN; Protocol PRN Reason: Hypoglycemia Protocol Stop: 11/22/24 04:27 Linezolid (Zyvox) 600 mg in 300 mls @ 300 mls/hr IV Q12H SURI Stop: 10/30/24 13:59 Piperacillin Sod/Tazobactam Sod (Zosyn) 4.5 gm in 100 mls @ 25 mls/hr IV Q8H SURI; Protocol Stop: 10/30/24 09:59 Pantoprazole Sodium (Protonix) 40 mg in 10 mls @ 5 mls/min IV BID SURI Stop: 11/22/24 08:59 Fentanyl Citrate (Fentanyl Citrate) 2,500 mcg in 250 mls @ 2.5 mls/hr IV .Q96H SURI; Protocol Stop: 11/06/24 04:44 Methylprednisolone 40 mg/ (Syringe) 0.64 mls @ 1.5 mls/min IV Q8H SURI Stop: 11/22/24 07:59 Midazolam HCl (Midazolam Hcl 1 Mg/Ml 2ml Vial) 2 mg IV Q2H PRN PRN Reason: RASS goal -1 Stop: 11/22/24 04:40 Miscellaneous (Icu Protocol For Hyperglycemia) 1 each N/A Q6 SURI Stop: 10/25/24 05:59 Miscellaneous (Carbohydrates For Hypoglycemia ) 15 - 30 gm PO UD PRN PRN Reason: Hypoglycemia Protocol Stop: 11/22/24 04:27 Ondansetron HCl (Ondansetron Inj 2 Mg/Ml 2 Ml Vial) 4 mg IV Q6H PRN PRN Reason: NAUSEA/VOMITING Stop: 11/22/24 04:27 ECG Additional Comments: Sinus tachycardia Incomplete left bundle block Minimal voltage criteria for LVH, may be normal variant(Moris product) ST &T wave abnormality, consider lateral ischemia Abnormal ECG When compared with ECG [id number] 19:47, Incomplete left bundle blockis nowPresent Coding Level of Care Code 01557 CRITICAL CARE EA ADD 30M Diagnoses Acute respiratory failure with hypoxia J96.01 Required emergent intubation Z98.890 CAD (coronary artery disease) I25.10 Hyperglycemia R73.9 WOJCIECH (acute kidney injury) N17.9
[2024-10-23] MEDS: RAPID SEQUENCE INDUCTION BAG ONE ×3 (03:17→04:36)
--- NOTE | 2024-10-23 03:26 | CT Scan Report ---
EXAM: CT abd pelvis IV con only CLINICAL HISTORY: acute resp fail, r/o PE, ams, wojciech, 120 ml optiray 320 TECHNIQUE: Contiguous axial images were obtained from the level of the diaphragm to the pubic symphysis following intravenous administration of contrast material. Coronal and sagittal reconstructions were likewise performed and indicated to increase the sensitivity for detecting clinically relevant pathology. If IV contrast material had not been administered, the likelihood of detecting abnormalities relevant to the patient's condition would have been substantially decreased. CT scan was performed according to ALARA (as low as reasonable achievable). COMPARISON: None. FINDINGS: The visualized lung bases show confluent centrilobular emphysema with patchy consolidation. The liver shows two small subcentimetric cysts in segment II and VIII. No other focal liver lesions are seen. There is no intra or extrahepatic biliary ductal dilatation. Hepatic vasculature is patent. The gallbladder is unremarkable. The spleen, pancreas, and adrenal glands are unremarkable. The kidneys are normal in size and attenuation with a subcentimetric simple cyst at the upper pole of left kidney. There is no hydronephrosis or perinephric fat stranding. The ureters are normal in caliber. The urinary bladder is empty with Wilkinson's catheter in situ. The prostate is grossly enlarged. No focal or diffuse bowel wall thickening or evidence of bowel obstruction is identified. No inflamed appendix is visualized in the right lower quadrant. Extensive atherocalcific plaques noted in the abdominal aorta. Left small fat-containing inguinal hernia is noted. No aggressive appearing osseous lesions are identified. IMPRESSION: 1. Confluent centrilobular emphysema with patchy consolidation in visualized lung bases. 2. Prostatomegaly - ultrasound correlation recommended 3. Left fat-containing small inguinal hernia Electronically signed by Gilberto Middleton 10-23-2024 03:25 AM
--- NOTE | 2024-10-23 04:09 | CT Scan Report ---
EXAM: CT angio chest PE protocol CLINICAL HISTORY: acute resp fail, r/o PE, ams, wojciech, 120 ml optiray 320 TECHNIQUE: Contiguous 3.[address] angiographic images of the chest were acquired with the administration of intravenous contrast. Coronal and sagittal reconstructions were obtained. One of these 3D techniques was utilized: Maximum Intensity Pixel (MIP), 3D Reconstructed Images, Volume Rendered Images, Surface Shaded Rendering. One of the following dose reduction techniques were utilized for this exam: Automated exposure control, adjustment of the mA and/or kV according to patient size, and use of iterative reconstruction. CTDI: DLP: COMPARISON: None. FINDINGS: Aorta: Extensive atherocalcific plaques in aortic arch and descending thoracic aorta. No evidence of aneurysm, dissection, or significant atherosclerotic changes. Aortic arch and descending thoracic aorta are unremarkable. Pulmonary Arteries: Pulmonary arteries are normal in size and opacification. No evidence of pulmonary embolism. No stenosis or filling defects. Superior Vena Cava (SVC) and Inferior Vena Cava (IVC): Normal opacification and caliber. No evidence of thrombus or obstruction. Coronary Arteries: Coronary arteries are well-opacified. No significant stenosis or atherosclerotic changes. Mediastinum: No mediastinal mass or lymphadenopathy. Normal appearance of the thymus. Heart: Normal size and morphology of the heart. No pericardial effusion. Lungs: Visualized abdomen reveals few subcentimetric simple hepatic cyst in segment II and VIII. There is confluent centrilobular and substantial paraseptal emphysema in bilateral lung parenchyma. Patchy consolidation with interlobular septal thickening apicoposterior segment of left upper lobe, posterior segment of right upper lobe and bilateral lower lobes. Right mild pleural effusion, measuring up to 1.4 cm in thickness and left mild pleural effusion measuring up to 1 cm in thickness. Few fibrotic bands at apical segment of right upper lobe. No pleural effusion or thickening. Bones: No fractures or lytic/sclerotic lesions of the visualized bony structures. Normal alignment and bone density. Soft Tissues: Few enlarged mediastinal lymph nodes, largest of short axis diameter 1.3 cm at subcarinal location. No abnormal masses or fluid collections. IMPRESSION: 1. No evidence of pulmonary embolism. 2. Confluent centrilobular and substantial paraseptal emphysema in bilateral lung parenchyma. 3. Patchy consolidation with interlobular septal thickening at apicoposterior segment of left upper lobe, posterior segment of right upper lobe and bilateral lower lobes. 4. Right mild pleural effusion, measuring up to 1.4 cm in thickness and left mild pleural effusion measuring up to 1 cm in thickness. 5. Mediastinal lymphadenopathy, likely reactive. Electronically signed by Gilberto Middleton 10-23-2024 04:09 AM
--- NOTE | 2024-10-23 04:12 | Billing Data ---
Date of Service October 23, 2024 Coding Level of Care Code 74740 CRITICAL CARE
[2024-10-23] MEDS ORDERED: GLUCOSE 10 TAB/TUBE PO PRN ×2 (04:28→05:45)
[2024-10-23] MEDS ORDERED: DEXTROSE 50% 50 ML SYRINGE IV PRN ×2 (04:28→05:45)
[2024-10-23] MEDS ORDERED: ONDANSETRON INJ 2 MG/ML 2 ML VIAL IV PRN (04:28)
[2024-10-23] MEDS ORDERED: GLUCOSE 40% GEL 15 GM TUBE PO PRN ×2 (04:28→05:45)
[2024-10-23] MEDS ORDERED: GLUCAGON FOR INJ 1 MG VIAL SQ PRN ×2 (04:28→05:45)
[2024-10-23] MEDS ORDERED: ACETAMINOPHEN 1000 MG/100 ML IV IV PRN (04:28)
[2024-10-23] MEDS ORDERED: ALBUT/IPRATROP 3MG/0.5MG NEB 3 ML VIAL NEB PRN (04:28)
[2024-10-23] MEDS ORDERED: CARBOHYDRATES FOR HYPOGLYCEMIA PO PRN ×2 (04:28→05:45)
[2024-10-23] MEDS: ONDANSETRON INJ 2 MG/ML 2 ML VIAL IV STA (04:35)
[2024-10-23] MEDS: LORazepam 2 MG/1 ML VIAL IV STA (04:35)
[2024-10-23] MEDS: FUROSEMIDE INJ 20 MG/2 ML VIAL IV ONE (04:35)
[2024-10-23] MEDS: ONDANSETRON INJ 2 MG/ML 2 ML VIAL ONE (04:36)
[2024-10-23] MEDS ORDERED: STAT IV Infusion **Titration per Protocol STA ×4 (04:41→10:03)
[2024-10-23] MEDS ORDERED: MIDAZOLAM HCL 1 MG/ML 2ML VIAL IV PRN (04:41)
[2024-10-23] MEDS ORDERED: fentaNYL BOLUS from BAG IV PRN (04:41)
[2024-10-23] MEDS: fentaNYL citrate 2,500 MCG/250 ML BAG IV SCH (04:56)
[2024-10-23 05:01] LABS: iSTAT Allen Test Pass; iSTAT Art Bld Gas pCO2 Correct 58 mmHg (35-46); iSTAT Arterial Blood Gas HCO3 21 meg/L (19-24); iSTAT Arterial Blood Gas pCO2 59 mmHg (35-46); iSTAT Arterial Blood Gas pH 7.16 (7.35-7.45); iSTAT Arterial Blood Gas pO2 117 mmHg (80-95); iSTAT Arterial Blood Gas pO2 C 114; iSTAT Carbon Dioxide 23 mmol/L (24-31); iSTAT FiO2 100 %; iSTAT Hematocrit 44 % (42-52); iSTAT Potassium 3.7 mmol/L (3.3-5.0); iSTAT Sample Type Arterial; iSTAT Site R Radial; iSTAT Sodium 136 mmol/L (135-144); iSTAT SpO2 96
[2024-10-23] MEDS ORDERED: AZITHROMYCIN 500 MG VIAL IV STA (05:36)
[2024-10-23 05:41] LABS: iSTAT Allen Test Pass; iSTAT Art Bld Gas pCO2 Correct 49 mmHg (35-46); iSTAT Art Bld Gas pH Corrected 7.216 (7.35-7.45); iSTAT Arterial Blood Gas HCO3 20 meg/L (19-24); iSTAT Arterial Blood Gas pCO2 51 mmHg (35-46); iSTAT Arterial Blood Gas pH 7.21 (7.35-7.45); iSTAT Arterial Blood Gas pO2 93 mmHg (80-95); iSTAT Arterial Blood Gas pO2 C 90; iSTAT Carbon Dioxide 22 mmol/L (24-31); iSTAT FiO2 85 %; iSTAT Hematocrit 44 % (42-52); iSTAT Sample Type Arterial; iSTAT Site R Radial; iSTAT Sodium 134 mmol/L (135-144); iSTAT SpO2 94
[2024-10-23] MEDS: AZITHROMYCIN 500 MG in SODIUM CHLORIDE 0.9% 250 ML IV ONE (05:50)
[2024-10-23] MEDS: fentaNYL citrate 2,500 MCG/250 ML BAG IV ONE (05:51)
--- NOTE | 2024-10-23 05:51 | Procedure Note ---
Procedure Note Date of Service October 23, 2024 INTUBATION PROCEDURE NOTE: Proceduralist: Margarito HARDIN ([facility]-) Attending: Dr. HUNTLEY Medications/Sedation/back-up- Dr. Anjel Sears A time-out was completed verifying correct patient, procedure, site, positioning. Patient was evaluated and required intubation for acute respiratory failure, aspiration, pulmonary edema and poor reserve while off BiPAP. Sedative agent used: Etomidate- 30mg, Versed 4mg IV x2, , Fentanyl 50mcg IO Paralysis agent used: Rocuronium 50mg, 20mg - repeat dose of 40mg IO Emergent consent was implied given patients rapidly declining clinical status and need for airway protection. The patient was prepared in the appropriate fashion. Sedation was finally achieved as above. Difficulty was noted as IV blew during RSI requiring re- dosing of medications through IO, per Dr. Sears's administration. The patient was easily ventilated using BIPAP 100% FiO2 and back up rate of 18, once parlytic took effect, we changed [id number] to achieve adequate oxygenation with PEEP valve of 10. Once adequate oxygenation was maintained, the patient's airway was opened using scissor technique, suctioned small amount of pink tinged secretions from the hypopahrynx. Using video-laryngoscopy with Glidescope 3, it was slowly advanced until appropriate view of vocal chords were obtained. There was no blood remaining in the airway or at the chords. A 8.0 Portuguese endotracheal tube was placed under 24 cm at the lip. The stylette was removed and balloon was inflated with 10mL of air. Appropriate Colorimetric change was appreciated. Bilateral breath sounds were heard without air sounds in the abdomen and appropriate EtCO2 was observed. Post procedure CXR was completed and the ETT was withdrawn another 1cm to [address] Sears from the ER was present for the entire procedure. [facility] [place] Procedure Codes (Charges) Resuscitation Resuscitation: 09733 Endotracheal Intubation, emergency Coding CPT Codes Resuscitation - Resuscitation: 92039 Endotracheal Intubation, emergency ([id number]) Additional Codes Date of Service (PG.SURGERY)
[2024-10-23] MEDS ORDERED: ICU Protocol for HYPERglycemia SCH ×2 (06:00→11:30)
--- NOTE | 2024-10-23 06:11 | XRay Report ---
EXAM: XR chest 1V portable CLINICAL HISTORY: POST INTUBATION SDM TECHNIQUE: An X-ray image of the chest is obtained in 1 AP projection. COMPARISON: CT 10/23/2024. FINDINGS: Lines and tubes: ETT was noted with a tip at 2.9cm from the christopher. Pulmonary Parenchyma: Diffuse patchy opacities were noted in the right lung and patchy discrete opacities in the left lung. Bilateral apical capping was noted more on the right side suggesting pleural thickening and apical consolidation. Heart and Mediastinum: Heart size and shape are normal. No mediastinal widening or masses. No hilar or mediastinal lymphadenopathy. Bony Thorax: Bony thorax appears intact without fractures or deformities. Soft Tissues: Soft tissues overlying the chest wall are unremarkable. IMPRESSION: 1. ETT was noted with a tip at 2.9cm from the christopher. 2. The rest of the findings correlate with the findings on CT 10/23/2024. Electronically signed by Chirag Farris 10-23-2024 06:11 AM
[2024-10-23] MEDS: INSULIN ASPART PER UNIT CHARGE SC SCH ×2 (06:17→11:53)
[2024-10-23 07:33] LABS: Estimated Average Glucose 114 mg/dl; Hemoglobin A1C 5.6 % (4.5-5.6)
[2024-10-23] MEDS ORDERED: PHARMACY GLYCEMIC MGMT CONSULT PRN (07:52)
[2024-10-23] MEDS ORDERED: methylPREDNISolone 40 MG in SYRINGE 0 ML IV SCH (08:00)
--- NOTE | 2024-10-23 08:02 | Procedure Note ---
Procedure Note Date of Service October 23, 2024 Procedure: Fiberoptic bronchoscopy Bronchoalveolar lavage Provider: Terrell Velasquez MD Consent: Procedure was emergent. Patient is intubated in the ICU. No family immediately available. Procedure: Patient is in the ICU intubated. He was placed on her percent FiO2. Bodai adapter was placed in line with the ventilator circuit. The fiberoptic scope was advanced through the existing endotracheal tube via the Bodai adapter. The tube was sounded and found to be approximately 4 cm above the christopher. There were minimal secretions within the airways or endotracheal tube. A systematic inspection of the airways was conducted. The right upper lobe, bronchus intermedius, right middle lobe, and right lower lobe were all widely patent. No significant endobronchial lesions identified. No significant mucopurulent secretions and no bloody secretions. Left-sided airways similarly demonstrated a normal anatomic configuration with no significant mucosal abnormality. After the inspection bronchoscopy was completed, the scope was wedged into the right middle lobe. A BAL was performed with instillation of 2 aliquots of 60 cc of saline. Return was optimal. The return was slightly pinkish however did not show increasing blood on serial aliquots therefore did not meet diagnostic criteria for alveolar hemorrhage. Return was greater than 50%. The bronchoscope was then removed from the airways. Impression: 1. Endotracheal tube in good position. 2. Successful BAL right middle lobe without obvious evidence of alveolar hemorrhage. Await microbiologic and cytologic studies [facility] [place] Procedure Codes (Charges) Pulmonary/Thoracic Procedure 1: Pulmonary and Thoracic: 78415 Dx bronchoscopy/BAL Coding CPT Codes Pulmonary/Thoracic - Pulmonary and Thoracic: 52909 Dx bronchoscopy/BAL ([id number]) Additional Codes Date of Service (PG.SURGERY)
[2024-10-23] MEDS ORDERED: PROPOFOL BOLUS FROM BAG IV PRN (08:05)
[2024-10-23] MEDS ORDERED: methylPREDNISolone 10 mg/mL (For Ped Dose < 7mg) IV SCH (09:00)
[2024-10-23] MEDS: PANTOprazole 40 MG/10 ML SYR IV SCH (09:01)
[2024-10-23] MEDS: PIPERACILLIN/TAZOBACTAM 4.5 GM/100 ML BAG IV SCH (09:02)
[2024-10-23] MEDS: FUROSEMIDE INJ 20 MG/2 ML VIAL IV SCH (09:02)
[2024-10-23] MEDS: INSULIN REGULAR 250 UNITS in SODIUM CHLORIDE 0.9% 247.5 ML IV SCH (09:54)
[2024-10-23] MEDS: TICAGRELOR 90 MG TAB OG SCH (09:55)
[2024-10-23] MEDS: ASPIRIN 81 MG CHEW OG SCH (09:55)
[2024-10-23] MEDS: NovoLIN-R BOLUS FROM BAG IV ONE (09:55)
[2024-10-23 10:03] LABS: Basophil Body Fluid Man 1 %; Eosinophil Body Fluid Man 1 %; Fluid Mono/Macrophage 69 %; Lymphocyte Body Fluid Man 6 %; Neutrophil Body Fluid Man 23 %
[2024-10-23] MEDS: propofoL 1,000 MG/100 ML VIAL IV SCH (10:06)
[2024-10-23] MEDS: HEPARIN SOD 5,000 UNIT/0.5 ML VIAL SQ SCH (10:07)
--- NOTE | 2024-10-23 10:25 | XCELERA ---
[id number] \\[id number].pdf
--- NOTE | 2024-10-23 11:32 | Procedure Note ---
Procedure Note Date of Service October 23, 2024 ARTERIAL LINE PROCEDURE NOTE: Procedure: Arterial Line Placement Provider: Terrell Velasquez MD Indication: Monitoring on Pressors Anesthesia: 3 cc 1% lidocaine Procedure was emergent. Patient is intubated and unable to provide consent. No family immediately available A time-out was completed verifying correct patient, procedure, site, positioning, and implant(s) or special equipment if applicable. Patient's right groin was prepped and draped in normal sterile fashion. Ultrasound was performed which revealed a compressible femoral vein as well as femoral artery. Skin was prepped and draped in normal sterile fashion. Skin and subcutaneous tissues were anesthetized with lidocaine. Under direct ultrasound visualization, the right femoral artery was cannulated using an 18-gauge needle. Pulsatile blood flow was obtained. The syringe was detached leaving the needle in place. A wire was passed through the needle into the vessel and the needle removed. Ultrasound was used to confirm the wire within the artery. Small skin josh was made. A 20 cm catheter was advanced over the wire into the artery and the wire removed. A pressure line was attached to the catheter and transduced revealing an arterial waveform. Catheter was sutured in place and a sterile dressing applied. Patient tolerated the procedure well Blood Loss: Minimal Complications: None [facility] [place] Codes (Charges) Tubes, Drains, and Vasc Access Procedure 1: Tubes, Drains, and Vasc Access: [id number] Arterial Cath/Cannulation Sampling/Monitoring/Transfusion Procedure 2: Tubes, Drains, and Vasc Access: [id number] Ultrasound Guidance For Vascular Coding CPT Codes Tubes, Drains, and Vasc Access - Tubes, Drains, and Vasc Access: [id number] Arterial Cath/Cannulation Sampling/Monitoring/Transfusion ([id number]) Tubes, Drains, and Vasc Access - Tubes, Drains, and Vasc Access: [id number] Ult rasound Guidance For Vascular ([id number]) Additional Codes Date of Service (PG.SURGERY)
--- NOTE | 2024-10-23 11:34 | Procedure Note ---
Procedure Note Date of Service October 23, 2024 CENTRAL LINE PROCEDURE NOTE: Procedure: Central Line Placement Provider: Terrell Velasquez MD Indication: Central Drug Administration, Poor Venous Access, Multiple Lab Draws Necessary, etc. Anesthesia: 3 cc 1% lidocaine locally Site: Right femoral Procedure was emergent. Patient is intubated and sedated and unable to provide verbal or written consent. No family immediately available. A time-out was completed verifying correct patient, procedure, site, po sitioning, and implants(s) or special equipment if applicable. The patient's right groin was prepped and draped using chlorhexidine and a sterile field established. Ultrasound was used to visualize the common femoral vein on the right. After adequate anesthetization was achieved, the right femoral vein was cannulated under direct ultrasound guidance using an introducer needle on a syringe. Good venous blood return was maintained prior to removal of syringe from introducer needle. Using Seldinger Technique, a guide wire was advanced through the introducer needle without resistance. The introducer needle was removed and ultrasound images were obtained of the guide wire within the Vein. A small incision was made in penetrating fashion at the guide wire insertion site utilizing an 11 blade scalpel. The dilator was advanced to the vessel without resistance. The dilator was exchanged for the triple lumen catheter which was advanced into the vessel without resistance. The guide wire was r emoved intact from the catheter without issue. Claves were placed on each catheter tip with confirmation of good blood flow from each lumen. Each port was easily flushed with sterile saline. The catheter was placed at the hub and sutured in place. BioPatch was applied to the catheter and a sterile Tegaderm dressing was applied over the catheter with careful attention to sterility. Patient tolerated procedure well. No immediate complications were met. Post procedure x-ray was completed, placement was appropriate and no pneumothorax was noted. Images obtained are saved for permanent record [facility] [place] Codes (Charges) Tubes, Drains, and Vasc Access Procedure 1: Tubes, Drains, and Vasc Access: [id number] Place catheter in vein superior or inferior vena cava Procedure 2: Tubes, Drains, and Vasc Access: [id number] Ultrasound Guidance For Vascular Coding CPT Codes Tubes, Drains, and Vasc Access - Tubes, Drains, and Vasc Access: 29455 Place catheter in vein superior or inferior vena cava ([id number]) Tubes, Drains, and Vasc Access - Tubes, Drains, and Vasc Access: [id number] Ultrasound Guidance For Vascular ([id number]) Additional Codes Date of Service (PG.SURGERY)
[2024-10-23 11:43] LABS: iSTAT Art Bld Gas pCO2 Correct 39 mmHg (35-46); iSTAT Art Bld Gas pH Corrected 7.268 (7.35-7.45); iSTAT Arterial Blood Gas HCO3 18 meg/L (19-24); iSTAT Arterial Blood Gas pCO2 40 mmHg (35-46); iSTAT Arterial Blood Gas pH 7.26 (7.35-7.45); iSTAT Arterial Blood Gas pO2 77 mmHg (80-95); iSTAT Arterial Blood Gas pO2 C 76; iSTAT Carbon Dioxide 19 mmol/L (24-31); iSTAT FiO2 60 %; iSTAT Hematocrit 43 % (42-52); iSTAT Hemoglobin 14.6 g/dl (14.0-18.0); iSTAT Potassium 4.4 mmol/L (3.3-5.0); iSTAT Sample Type Arterial; iSTAT Site Art Line; iSTAT Sodium 135 mmol/L (135-144)
[2024-10-23] MEDS: SODIUM BICARB 8.4% INJ 50 MEQ/50 ML SYR IV STA (11:53)
[2024-10-23] MEDS: NOREPINEPHRINE/D5W 4 MG/250 ML PLCT IV SCH (11:54)
[2024-10-23] MEDS: NOREPINEPHRINE/D5W 4 MG/250 ML IV ONE (11:55)
[2024-10-23 12:06] LABS: Albumin Globulin Ratio 1.1 (0.9-2); Albumin Level 3.5 gm/dl (3.4-5.0); BUN Creatinine Ratio 11.1 (10-20); Bilirubin,Total 0.4 mg/dl (0.2-1.0); Calcium 8.5 mg/dl (8.6-10.3); Creatinine Clr Calc Pharmacy 23.7 ml/min; Globulin 3.1 gm/dl (2.5-4.0); Potassium 4.5 mmol/L (3.5-5.1); Total Protein 6.6 gm/dl (6.0-8.3)
[2024-10-23 12:12] LABS: Troponin I High Sensitivity 1346.9 pg/ml (0-20)
--- NOTE | 2024-10-23 12:28 | Cardiology Consultation ---
Date of Consultation October 23, 2024 Assessment & Plan (1) Acute respiratory failure with hypoxia: -The patient does have significant underlying lung disease. -Suspect there is also a component of congestive heart failure. -Agree with intravenous diuretics. (2) Left ventricular dysfunction: -Moderate to severe left ventricular dysfunction with global hypokinesis. -LVEF 25 to 30%, unchanged from prior study according to the record. -Currently on intravenous Levophed. (3) CAD (coronary artery disease): -Apparently had stents placed in the LAD and LCx in July, [facility]. -Records are pending. History of Present Illness Attending Physician: Brayan Cortez MD History of Present Illness Mr. Monzon is an 84-year-old female admitted earlier today in acute respiratory failure. This consultation was ordered to assist in his cardiac management. Of note, the patient typically follows with Dr. Oconnor in the outpatient setting. The patient is currently intubated in the intensive care unit, therefore, history is obtained from the chart. The patient was in his usual state of health until last evening when he became acutely short of breath. He had several small episodes of hemoptysis. He presented to the emergency room and was placed on BiPAP. Once he arrived to the ICU, he had an abrupt decompensation after vomiting and coughing profusely. He was intubated and sedated. He required pressors for blood pressure support. The patient does carry history of coronary artery disease and apparently had 2 stents placed back in July at the [facility]. One stent is in the LAD, the other in the LCx. The patient does carry history of ischemic cardiomyopathy with an ejection fraction of 25%. He also carries a history of restrictive lung disease and significant emphysema. Past medical and surgical history 1. Coronary artery diseasesee above 2. Hypertension 3. Hypercholesterolemia 4. LBBB 5. Ischemic [id number]% 6. Emphysema 7. Restrictive lung disease 8. BPH Social history and lives with his Former smoker Family history Noncontributory Review of systems Unobtainable. Allergies Allergy/AdvReac Type Severity Reaction Status Date / Time No Known Allergies Allergy Unverified 10/18/24 15:28 Home Medications Medication Instructions Recorded Confirmed Type albuterol sulfate 90 mcg/actuation 2 puff inhalation Q6H PRN 09/23/23 10/23/24 Rx aerosol inhaler Shortness Of Breath Or Wheezing #18 grams aspirin 81 mg tablet,delayed 81 mg PO DAILY 10/18/24 10/23/24 History release (Adult Aspirin Regimen) cephalexin 500 mg capsule 500 mg PO TID 7 days #21 caps 10/18/24 10/23/24 Rx atorvastatin 40 mg tablet 40 mg PO HS 10/23/24 10/23/24 History citalopram 10 mg tablet 10 mg PO DAILY 10/23/24 10/23/24 History dapagliflozin propanediol 10 mg 10 mg PO DAILY 10/23/24 10/23/24 History tablet (Farxiga) furosemide 20 mg tablet 20 mg PO DAILY 10/23/24 10/23/24 History metoprolol succinate 50 mg 50 mg PO DAILY 10/23/24 10/23/24 History tablet,extended release 24 hr sacubitril 49 mg-valsartan 51 mg 1 tab PO BID 10/23/24 10/23/24 History tablet (Entresto) ticagrelor 90 mg tablet (Brilinta) 90 mg PO BID 10/23/24 10/23/24 History Patient History Medical History (Updated 10/23/24 @ 12:23 by Pb Ferrer MD) Left bundle branch block Restrictive lung disease COPD (chronic obstructive pulmonary disease) Ex-smoker Shortness of breath Pneumonia due to COVID-19 virus COVID-19 Surgical History (Updated 10/23/24 @ 04:41 by LASHAWN Galindo) Presence of stent in coronary artery Family History Other No significant family history Social History Smoking Status: Former smoker Do You Dip or Chew Tobacco: No; Hx Alcohol Use: No Hx Substance Use: No Preferred Language: [place]ian Communication Ability: Effective 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 HEENT exam notes an ET tube in place. Neck is supple with full carotid upstrokes. Jugular is pressure cannot be assessed. Cardiovascular exam reveals a regular rhythm with distant heart sounds. No obvious murmurs. Lungs no coarse breath sounds throughout. Abdomen soft. Extremities reveal intact radial artery pulses bilaterally. No peripheral edema. Results & Data Vital Signs (Past 12 Hours) Vital Signs Temp Pulse Pulse Resp BP BP Pulse Ox 10/23/24 11:39 62 24 94 10/23/24 11:33 36.7 C 63 24 94 10/23/24 11:15 36.8 C 64 24 118/76 94 10/23/24 11:09 36.8 C 61 24 113/77 92 10/23/24 11:03 36.8 C 61 24 113/79 91 10/23/24 11:00 36.8 C 67 24 127/77 93 10/23/24 10:55 118/75 10/23/24 10:50 92/64 L 10/23/24 10:45 84/59 L 10/23/24 10:42 36.8 C 74 24 80/60 L 92 10/23/24 10:40 72/56 L 10/23/24 10:39 73/59 L 10/23/24 10:36 82/53 L 10/23/24 10:30 36.7 C 83 24 66/50 L 91 10/23/24 10:29 52/42 L 10/23/24 09:57 36.6 C 79 24 86/64 L 91 10/23/24 09:30 36.6 C 82 24 85/67 L 10/23/24 09:17 94/67 L 10/23/24 09:15 89/65 L 10/23/24 09:00 36.6 C 84 24 122/83 89 L 10/23/24 08:56 86 10/23/24 08:45 36.6 C 88 24 117/90 90 10/23/24 08:30 126/90 10/23/24 08:24 10/23/24 08:15 113/87 10/23/24 08:00 36.7 C 87 24 111/84 10/23/24 08:00 10/23/24 07:54 10/23/24 07:44 139/105 H 10/23/24 07:30 36.7 C 92 H 24 94 10/23/24 07:15 36.8 C 93 H 24 89 L 10/23/24 07:08 93 H 24 90 10/23/24 07:00 36.8 C 94 H 24 107/85 10/23/24 06:21 36.6 C 102 H 24 91 10/23/24 06:18 36.6 C 103 H 24 91 10/23/24 06:00 120/80 10/23/24 05:54 36.5 C 106 H 24 92 10/23/24 05:51 36.5 C 106 H 24 92 10/23/24 05:49 10/23/24 05:48 36.5 C 107 H 24 92 10/23/24 05:45 36.5 C 107 H 24 92 10/23/24 05:33 24 10/23/24 05:30 119/81 10/23/24 05:24 36.4 C L 110 H 22 93 10/23/24 05:06 22 10/23/24 04:37 10/23/24 04:30 113/82 10/23/24 04:28 10/23/24 04:28 100 H 10/23/24 04:27 118 H 14 93 10/23/24 04:25 88/68 L 10/23/24 04:21 115 H 6 L 92 10/23/24 04:15 116 H 14 94 10/23/24 03:54 108 H 41 H 90 10/23/24 03:52 125/90 10/23/24 03:48 108 H 27 H 89 L 10/23/24 03:45 103 H 26 H 118/81 91 10/23/24 03:44 117/84 10/23/24 03:44 117/84 10/23/24 03:42 95 H 29 H 95 10/23/24 03:40 131/84 10/23/24 03:39 96 H 29 H 93 10/23/24 03:35 122/72 10/23/24 03:33 92 H 27 H 93 10/23/24 03:30 132/84 10/23/24 03:30 92 H 25 H 96 10/23/24 03:17 92 H 27 H 105/67 90 10/23/24 03:12 131/79 10/23/24 03:12 91 H 36 H 10/23/24 02:42 36.6 C 97 H 26 H 89 L 10/23/24 02:40 105/73 10/23/24 02:36 36.6 C 96 H 26 H 90 10/23/24 02:30 36.6 C 95 H 27 H 90 10/23/24 02:30 99/72 L 10/23/24 02:30 99/72 L 10/23/24 02:27 36.6 C 96 H 26 H 90 10/23/24 02:23 100/69 10/23/24 02:23 100/69 10/23/24 02:23 100/69 10/23/24 02:12 36.5 C 98 H 26 H 89 L 10/23/24 02:03 36.4 C L 100 H 27 H 90 10/23/24 02:00 122/85 10/23/24 01:57 36.4 C L 100 H 27 H 89 L 10/23/24 01:51 36.3 C L 100 H 27 H 91 10/23/24 01:50 131/87 10/23/24 01:50 131/87 10/23/24 01:50 131/87 10/23/24 01:50 131/87 10/23/24 01:21 36.5 C 119 H 90 10/23/24 01:20 158/110 H 10/23/24 01:20 158/110 H 10/23/24 01:19 116 H 35 H 89 L 10/23/24 01:18 36.4 C L 116 H 91 10/23/24 01:16 93 10/23/24 01:10 149/104 H 10/23/24 01:10 149/104 H 10/23/24 01:10 149/104 H 10/23/24 01:06 35.8 C L 10/23/24 01:06 122 H 30 H 158/111 H 93 10/23/24 01:02 10/23/24 01:00 132 H 10/23/24 00:59 117 H 32 H 146/95 H 91 10/23/24 00:45 130 H 35 H 64 L O2 Del Method O2 Del Method FiO2 10/23/24 11:39 60 10/23/24 11:33 10/23/24 11:15 10/23/24 11:09 10/23/24 11:03 10/23/24 11:00 10/23/24 10:55 10/23/24 10:50 10/23/24 10:45 10/23/24 10:42 10/23/24 10:40 10/23/24 10:39 10/23/24 10:36 10/23/24 10:30 10/23/24 10:29 10/23/24 09:57 10/23/24 09:30 10/23/24 09:17 10/23/24 09:15 10/23/24 09:00 10/23/24 08:56 10/23/24 08:45 10/23/24 08:30 10/23/24 08:24 Mechanical Vent 60 10/23/24 08:15 10/23/24 08:00 10/23/24 08:00 60 10/23/24 07:54 Mechanical Vent 10/23/24 07:44 10/23/24 07:30 10/23/24 07:15 10/23/24 07:08 60 10/23/24 07:00 10/23/24 06:21 10/23/24 06:18 10/23/24 06:00 10/23/24 05:54 10/23/24 05:51 10/23/24 05:49 85 10/23/24 05:48 10/23/24 05:45 10/23/24 05:33 10/23/24 05:30 10/23/24 05:24 10/23/24 05:06 85 10/23/24 04:37 Mechanical Vent 100 10/23/24 04:30 10/23/24 04:28 Mechanical Vent 10/23/24 04:28 10/23/24 04:27 10/23/24 04:25 10/23/24 04:21 10/23/24 04:15 100 10/23/24 03:54 10/23/24 03:52 10/23/24 03:48 10/23/24 03:45 10/23/24 03:44 10/23/24 03:44 10/23/24 03:42 10/23/24 03:40 10/23/24 03:39 10/23/24 03:35 10/23/24 03:33 10/23/24 03:30 10/23/24 03:30 10/23/24 03:17 Room Air 10/23/24 03:12 10/23/24 03:12 10/23/24 02:42 10/23/24 02:40 10/23/24 02:36 10/23/24 02:30 10/23/24 02:30 10/23/24 02:30 10/23/24 02:27 10/23/24 02:23 10/23/24 02:23 10/23/24 02:23 10/23/24 02:12 10/23/24 02:03 10/23/24 02:00 10/23/24 01:57 10/23/24 01:51 10/23/24 01:50 10/23/24 01:50 10/23/24 01:50 10/23/24 01:50 10/23/24 01:21 10/23/24 01:20 10/23/24 01:20 10/23/24 01:19 100 10/23/24 01:18 BiPAP 10/23/24 01:16 BiPAP 10/23/24 01:10 10/23/24 01:10 10/23/24 01:10 10/23/24 01:06 10/23/24 01:06 BiPAP 10/23/24 01:02 BiPAP 10/23/24 01:00 10/23/24 00:59 10/23/24 00:45 BiPAP Laboratory Results CBC notes hemoglobin of 15.0, hematocrit 49.6, white count 14.3, and a platelet count of 301,000. Electrolytes noted sodium of 137, potassium 3.3, chloride 102, bicarb 17, BUN 19, creatinine 1.74, and glucose of 252. Initial high- sensitivity troponin was 22.6 with follow-up values of 135 and 559. BNP is elevated 3614. Lactate is elevated 2.8. Diagnostic Findings Echocardiogram notes moderate to severe left ventricular dysfunction with an ejection fraction of 25 to 30%. There is moderate to severe global hypokinesis along with mild tricuspid regurgitation. EKG notes sinus tachycardia with an incomplete left bundle branch block and lateral ST and T wave changes. Chest x- ray notes diffuse patchy opacities. Chest CT notes emphysematous changes and diffuse patchy consolidation. PG Care Time/CCT Total # of Minutes Spent Total Time Spent with Patient: Total time spent is greater than 50% in coordination of care (as documented) at patient's floor/unit and/or counseling patient: Coding Level of Care Code 13487 INT INP/OBS CARE 375MIN Diagnoses Acute respiratory failure with hypoxia J96.01 Left ventricular dysfunction I51.9 CAD (coronary artery disease) I25.10 Associated angina: unspecified whether angina present Coronary Disease-Associated Artery/Lesion type: unspecified vessel or lesion type [place] vs. transplanted heart: [place] heart (3) CAD (coronary artery disease) Associated angina: unspecified whether angina present Coronary Disease- Associated Artery/Lesion type: unspecified vessel or lesion type [place] vs. transplanted heart: [place] heart Qualified Code(s): I25.10 - Atherosclerotic heart disease of [place] coronary artery without angina pectoris
[2024-10-23] MEDS ORDERED: Nursing to Pharmacy Communication SCH (13:00)
--- NOTE | 2024-10-23 13:12 | Electrocardiogram Report ---
Test Reason : Blood Pressure : */* mmHG Vent. Rate : 121 BPM Atrial Rate : 121 BPM P-R Int : 138 ms QRS Dur : 112 ms QT Int : 354 ms P-R-T Axes : 75 12 125 degrees QTcB Int : 502 ms Sinus tachycardia Incomplete left bundle block Minimal voltage criteria for LVH, may be normal variant Abnormal ECG When compared with ECG of 11-Aug-2021 19:47, Incomplete left bundle block is now Present Confirmed by Pb Ferrer ([id number]) on 10/23/2024 1:12:00 PM Referred By: REFERRED SELF Confirmed By: Pb Ferrer
--- NOTE | 2024-10-23 13:13 | Electrocardiogram Report ---
Test Reason : Blood Pressure : */* mmHG Vent. Rate : 110 BPM Atrial Rate : 110 BPM P-R Int : 154 ms QRS Dur : 82 ms QT Int : 376 ms P-R-T Axes : 83 58 112 degrees QTcB Int : 508 ms Sinus tachycardia Nonspecific ST abnormality Abnormal ECG When compared with ECG of 23-Oct-2024 01:08, (unconfirmed) Incomplete left bundle block is no longer Present Confirmed by Pb Ferrer ([id number]) on 10/23/2024 1:13:35 PM Referred By: REFERRED SELF Confirmed By: Pb Ferrer
[2024-10-23] MEDS: NUTREN LIQD 2.0 1,000 ML BAG OG SCH (13:45)
[2024-10-23] MEDS ORDERED: MIDAZOLAM HCL 5 MG/ML 2ML VIAL IV ONE ×2 (13:48)
[2024-10-23] MEDS ORDERED: ROCURONIUM BROMIDE 10 MG/ML 5 ML VIAL IV ONE ×2 (13:48)
[2024-10-23] MEDS ORDERED: ETOMIDATE 2 MG/ML 20 ML VIAL IV ONE (13:48)
[2024-10-23] MEDS ORDERED: fentaNYL citrate PF 100 MCG/2 ML VIAL IV ONE (13:48)
--- NOTE | 2024-10-23 14:02 | Pharmacy Report ---
Pharmacy Glycemic Short Note 2 - Date of Service October 23, 2024 - Glycemic Short BSG Results (Last 24 hours): 10/23/24 10/23/24 10/23/24 01:02 01:15 05:25 Glucose 252 H POC Glucose 235 H POC Glucose (other) 237 H 10/23/24 10/23/24 10/23/24 07:40 11:31 11:36 Glucose 216 H POC Glucose 243 H POC Glucose (other) 213 H OUTPATIENT ANTIDIABETIC REGIMEN: * Dapagliflozin 10 mg PO daily * A1c = 5.6% ASSESSMENT: * Justin is a 84 yo admitted to ICU for acute respiratory failure s/p intubation. Patient is requiring pressor support in the form of norepinephrine. Given a one time dose of methylprednisolone 125 mg IV in ED. Labs from overnight indicated anion gap 18, bicarb 17 and BSG of 252 mg/dL. Per provider, anion gap acidosis likely related to lactate/renal function rather than DKA. Patient started on IV insulin infusion for persistent BSG > 200 mg/dL (per severe hyperglycemia protocol). PLAN FOR INPATIENT GLYCEMIC CONTROL: * Hold outpatient oral diabetes medications * Continue IV insulin infusion * Goal range: 110 - 180 mg/dL
[2024-10-23] MEDS: HEPARIN SODIUM/DEXTROSE 25,000 UNITS/500 ML BAG IV SCH (14:12)
[2024-10-23] MEDS: Heparin IV Adult Wt-Based Standard *NO* INITIAL Bolus Protocol IV STA (14:13)
--- NOTE | 2024-10-23 15:58 | Hospitalist Progress Note ---
Date of Service October 23, 2024 Assessment & Plan (1) Acute respiratory failure with hypoxia and hypercapnia: Plan: possibly multifactorial including decompensated CHF and pneumonia initiation of BIPAP in ER was initially helpful but unfortunately he ultimately decompensated further requiring ICU admission & intubation/mech ventilation defer vent management to ICU attending (2) Acute on chronic systolic heart failure: Plan: clinically & radiographically presented with decompensated systolic CHF EF 25-30% on echo s/p lasix IV this am by report has had poor UOP despite the lasix need for inotropic agent? defer to cardiology & ICU attending holding meto succ holding Entresto (3) Shock: Plan: suspect mainly cardiogenic - now on levophed cannot rule out component of septic shock but much less likely cortisol level wnl no evidence of bleeding; stable H/H defer shock management to ICU attending (4) Aspiration pneumonia: Plan: suspected s/p bronchoscopy overnight - cultures sent is on broad-spectrum IV abx - zosyn/azithromycin MRSA swab is negative - defer on MRSA coverage - zyvox d/c (5) NSTEMI (non-ST elevated myocardial infarction): Plan: presenting troponin was 22; now >1000 trend until the peak uncertain if type 1 vs type 2 NH (ie myocardial demand ischemia) to cover for acute coronary event remains on heparin infusion, asa, Brilinta defer management to cardiology/ICU attending (6) CAD (coronary artery disease): Plan: h/o stent placement at [facility] - 07/2024 s/p stents x 2 - L main, RCA ? meto succ & Entresto on hold can cont asa cont Brilinta statin currently on hold (7) Left bundle branch block: Plan: EKG with incomplete LBBB anterolateral ST depressions also noted troponin elevation noted - see below (8) Restrictive lung disease: (9) COPD (chronic obstructive pulmonary disease): Plan: no indication for systemic steroids at this time (10) Presence of stent in coronary artery: Plan: see above (11) Elevated serum creatinine: Plan: baseline creatinine uncertain presenting Cr 1.7 today 1.8 was 1.3 in 2021 serial BMPs (12) DVT prophylaxis: Plan: heparin infusion Admission and Anticipated Discharge Date Admission Date: October 23, 2024 Subjective events of overnight noted patient admitted to ICU and ultimately required intubation due to worsening respiratory status currently being diuresed, remains on levophed, and is sedated Review of Systems Review of Systems: Unobtainable due to endotracheal tube and Unobtainable due to reduced consciousness Physical Exam Physical Exam: gen - intubated, sedated neck - JVD present mouth - ETT, enteric tube present heart - RRR, s1 s2, no obvious murmur lungs - decreased BS bases, CTA b/l otherwise abd - soft NT ND BS+; no HSM ext - very cool to touch distal legs/feet; pulses 1+ b/l Results & Data Results & Data Vital Signs (Past 12 Hours) Vital Signs Temp Pulse Resp BP Pulse Ox O2 Del Method O2 Del Method 10/23/24 14:57 36.8 C 67 24 126/81 97 10/23/24 14:42 36.8 C 70 24 97 10/23/24 14:00 36.8 C 61 24 129/89 97 10/23/24 13:36 36.8 C 70 24 96 10/23/24 13:00 36.8 C 72 24 126/76 94 10/23/24 12:54 36.8 C 68 24 126/79 95 10/23/24 12:33 36.7 C 70 24 95 10/23/24 12:27 36.7 C 73 24 123/80 95 10/23/24 12:15 36.7 C 69 24 94 10/23/24 11:39 62 24 94 10/23/24 11:33 36.7 C 63 24 94 10/23/24 11:15 36.8 C 64 24 118/76 94 10/23/24 11:09 36.8 C 61 24 113/77 92 10/23/24 11:03 36.8 C 61 24 113/79 91 10/23/24 11:00 36.8 C 67 24 127/77 93 10/23/24 10:55 118/75 10/23/24 10:50 92/64 L 10/23/24 10:45 84/59 L 10/23/24 10:42 36.8 C 74 24 80/60 L 92 10/23/24 10:40 72/56 L 10/23/24 10:39 73/59 L 10/23/24 10:36 82/53 L 10/23/24 10:30 36.7 C 83 24 66/50 L 91 10/23/24 10:29 52/42 L 10/23/24 09:57 36.6 C 79 24 86/64 L 91 10/23/24 09:30 36.6 C 82 24 85/67 L 10/23/24 09:17 94/67 L 10/23/24 09:15 89/65 L 10/23/24 09:00 36.6 C 84 24 122/83 89 L 10/23/24 08:56 86 10/23/24 08:45 36.6 C 88 24 117/90 90 10/23/24 08:30 126/90 10/23/24 08:24 Mechanical Vent 10/23/24 08:15 113/87 10/23/24 08:00 36.7 C 87 24 111/84 10/23/24 08:00 10/23/24 07:54 Mechanical Vent 10/23/24 07:44 139/105 H 10/23/24 07:30 36.7 C 92 H 24 94 10/23/24 07:15 36.8 C 93 H 24 89 L 10/23/24 07:08 93 H 24 90 10/23/24 07:00 36.8 C 94 H 24 107/85 10/23/24 06:21 36.6 C 102 H 24 91 10/23/24 06:18 36.6 C 103 H 24 91 10/23/24 06:00 120/80 10/23/24 05:54 36.5 C 106 H 24 92 10/23/24 05:51 36.5 C 106 H 24 92 10/23/24 05:49 10/23/24 05:48 36.5 C 107 H 24 92 10/23/24 05:45 36.5 C 107 H 24 92 10/23/24 05:33 24 10/23/24 05:30 119/81 10/23/24 05:24 36.4 C L 110 H 22 93 10/23/24 05:06 22 10/23/24 04:37 Mechanical Vent 10/23/24 04:30 113/82 10/23/24 04:28 Mechanical Vent 10/23/24 04:28 100 H 10/23/24 04:27 118 H 14 93 10/23/24 04:25 88/68 L 10/23/24 04:21 115 H 6 L 92 10/23/24 04:15 116 H 14 94 FiO2 10/23/24 14:57 10/23/24 14:42 10/23/24 14:00 10/23/24 13:36 10/23/24 13:00 10/23/24 12:54 10/23/24 12:33 10/23/24 12:27 10/23/24 12:15 10/23/24 11:39 60 10/23/24 11:33 10/23/24 11:15 10/23/24 11:09 10/23/24 11:03 10/23/24 11:00 10/23/24 10:55 10/23/24 10:50 10/23/24 10:45 10/23/24 10:42 10/23/24 10:40 10/23/24 10:39 10/23/24 10:36 10/23/24 10:30 10/23/24 10:29 10/23/24 09:57 10/23/24 09:30 10/23/24 09:17 10/23/24 09:15 10/23/24 09:00 10/23/24 08:56 10/23/24 08:45 10/23/24 08:30 10/23/24 08:24 60 10/23/24 08:15 10/23/24 08:00 10/23/24 08:00 60 10/23/24 07:54 10/23/24 07:44 10/23/24 07:30 10/23/24 07:15 10/23/24 07:08 60 10/23/24 07:00 10/23/24 06:21 10/23/24 06:18 10/23/24 06:00 10/23/24 05:54 10/23/24 05:51 10/23/24 05:49 85 10/23/24 05:48 10/23/24 05:45 10/23/24 05:33 10/23/24 05:30 10/23/24 05:24 10/23/24 05:06 85 10/23/24 04:37 100 10/23/24 04:30 10/23/24 04:28 10/23/24 04:28 10/23/24 04:27 10/23/24 04:25 10/23/24 04:21 10/23/24 04:15 100 Laboratory Results Abnormal lab results 10/23/24 10/23/24 10/23/24 Range/Units 01:02 01:05 01:15 WBC 14.33 H (4.8-10.8) K/ul MCHC 31.9 L (32.0-36.0) g/dL RDW Std Deviation 49.1 H (36.4-46.3) fL Neut # (Auto) 7.50 H (1.40-6.50) K/uL Lymph # (Auto) 5.45 H (1.20-3.40) K/uL [place] # (Auto) 0.64 H (0.11-0.59) K/uL Eos # (Auto) 0.56 H (0.00-0.50) K/uL POC pH (7.35-7.45) POC pCO2 (35-46) mmHg POC pO2 (80-95) mmHg POC HCO3 (19-24) osmar/L ABG pH (Temp Correct) (7.35-7.45) ABG pCO2 (Temp Corrct (35-46) mmHg POC ABG O2 Sat (90-95) % VBG pH (7.36-7.41) POC Sodium (135-144) mmol/L Sodium (136-145) mmol/L POC Potassium 3.2 L (3.3-5.0) mmol/L Potassium 3.3 L (3.5-5.1) mmol/L Carbon Dioxide 17 L (21-32) mmol/L POC Total CO2 18 L (24-31) mmol/L Anion Gap 18 H (3-11) POC BUN 19 H (7-18) mg/dl Creatinine 1.74 H (0.6-1.4) mg/dl POC Creatinine 1.8 H (0.6-1.3) mg/dl Glucose 252 H (70-99(Fasting)) mg/dl POC Glucose (70-99) mg/dl POC Glucose (other) 237 H (70-99) mg/dl Lactate (0.4-2.0) mmol/L Calcium (8.6-10.3) mg/dl Alkaline Phosphatase 121 H (34-104) U/L Troponin I High Sens 22.6 H (0-20) pg/ml B-Natriuretic Peptide (0-100) pg/ml Urine Protein Trace H (Negative) Urine Blood Trace H (Negative) Ur Leukocyte Esterase 1+ H (Negative) Urine WBC (Auto) 6-10 H (0-5) /hpf Urine RBC (Auto) 3-5 H (0-2) /hpf 10/23/24 10/23/24 10/23/24 Range/Units 01:18 02:01 02:38 WBC (4.8-10.8) K/ul MCHC (32.0-36.0) g/dL RDW Std Deviation (36.4-46.3) fL Neut # (Auto) (1.40-6.50) K/uL Lymph # (Auto) (1.20-3.40) K/uL [place] # (Auto) (0.11-0.59) K/uL Eos # (Auto) (0.00-0.50) K/uL POC pH 7.32 L (7.35-7.45) POC pCO2 33 L (35-46) mmHg POC pO2 59 L (80-95) mmHg POC HCO3 17 L (19-24) osmar/L ABG pH (Temp Correct) (7.35-7.45) ABG pCO2 (Temp Corrct (35-46) mmHg POC ABG O2 Sat 88.0 L (90-95) % VBG pH 7.29 L (7.36-7.41) POC Sodium (135-144) mmol/L Sodium (136-145) mmol/L POC Potassium 2.7 L (3.3-5.0) mmol/L Potassium (3.5-5.1) mmol/L Carbon Dioxide (21-32) mmol/L POC Total CO2 18 L (24-31) mmol/L Anion Gap (3-11) POC BUN (7-18) mg/dl Creatinine (0.6-1.4) mg/dl POC Creatinine (0.6-1.3) mg/dl Glucose (70-99(Fasting)) mg/dl POC Glucose (70-99) mg/dl POC Glucose (other) (70-99) mg/dl Lactate 2.8 H* (0.4-2.0) mmol/L Calcium (8.6-10.3) mg/dl Alkaline Phosphatase (34-104) U/L Troponin I High Sens 135.0 H* D (0-20) pg/ml B-Natriuretic Peptide 3614 H (0-100) pg/ml Urine Protein (Negative) Urine Blood (Negative) Ur Leukocyte Esterase (Negative) Urine WBC (Auto) (0-5) /hpf Urine RBC (Auto) (0-2) /hpf 10/23/24 10/23/24 10/23/24 Range/Units 04:44 04:47 05:13 WBC (4.8-10.8) K/ul MCHC (32.0-36.0) g/dL RDW Std Deviation (36.4-46.3) fL Neut # (Auto) (1.40-6.50) K/uL Lymph # (Auto) (1.20-3.40) K/uL [place] # (Auto) (0.11-0.59) K/uL Eos # (Auto) (0.00-0.50) K/uL POC pH 7.16 L* (7.35-7.45) POC pCO2 59 H (35-46) mmHg POC pO2 117 H (80-95) mmHg POC HCO3 (19-24) osmar/L ABG pH (Temp Correct) 7.170 L* (7.35-7.45) ABG pCO2 (Temp Corrct 58 H (35-46) mmHg POC ABG O2 Sat 97.0 H (90-95) % VBG pH (7.36-7.41) POC Sodium (135-144) mmol/L Sodium (136-145) mmol/L POC Potassium (3.3-5.0) mmol/L Potassium (3.5-5.1) mmol/L Carbon Dioxide (21-32) mmol/L POC Total CO2 23 L (24-31) mmol/L Anion Gap (3-11) POC BUN (7-18) mg/dl Creatinine (0.6-1.4) mg/dl POC Creatinine (0.6-1.3) mg/dl Glucose (70-99(Fasting)) mg/dl POC Glucose (70-99) mg/dl POC Glucose (other) (70-99) mg/dl Lactate 2.8 H* (0.4-2.0) mmol/L Calcium (8.6-10.3) mg/dl Alkaline Phosphatase (34-104) U/L Troponin I High Sens 559.3 H* D (0-20) pg/ml B-Natriuretic Peptide (0-100) pg/ml Urine Protein (Negative) Urine Blood (Negative) Ur Leukocyte Esterase (Negative) Urine WBC (Auto) (0-5) /hpf Urine RBC (Auto) (0-2) /hpf 10/23/24 10/23/24 10/23/24 Range/Units 05:25 05:27 07:40 WBC (4.8-10.8) K/ul MCHC (32.0-36.0) g/dL RDW Std Deviation (36.4-46.3) fL Neut # (Auto) (1.40-6.50) K/uL Lymph # (Auto) (1.20-3.40) K/uL [place] # (Auto) (0.11-0.59) K/uL Eos # (Auto) (0.00-0.50) K/uL POC pH 7.21 L (7.35-7.45) POC pCO2 51 H (35-46) mmHg POC pO2 (80-95) mmHg POC HCO3 (19-24) osmar/L ABG pH (Temp Correct) 7.216 L (7.35-7.45) ABG pCO2 (Temp Corrct 49 H (35-46) mmHg POC ABG O2 Sat (90-95) % VBG pH (7.36-7.41) POC Sodium 134 L (135-144) mmol/L Sodium (136-145) mmol/L POC Potassium (3.3-5.0) mmol/L Potassium (3.5-5.1) mmol/L Carbon Dioxide (21-32) mmol/L POC Total CO2 22 L (24-31) mmol/L Anion Gap (3-11) POC BUN (7-18) mg/dl Creatinine (0.6-1.4) mg/dl POC Creatinine (0.6-1.3) mg/dl Glucose (70-99(Fasting)) mg/dl POC Glucose 235 H 243 H (70-99) mg/dl POC Glucose (other) (70-99) mg/dl Lactate (0.4-2.0) mmol/L Calcium (8.6-10.3) mg/dl Alkaline Phosphatase (34-104) U/L Troponin I High Sens (0-20) pg/ml B-Natriuretic Peptide (0-100) pg/ml Urine Protein (Negative) Urine Blood (Negative) Ur Leukocyte Esterase (Negative) Urine WBC (Auto) (0-5) /hpf Urine RBC (Auto) (0-2) /hpf 10/23/24 10/23/24 10/23/24 Range/Units 11:31 11:33 11:36 WBC (4.8-10.8) K/ul MCHC (32.0-36.0) g/dL RDW Std Deviation (36.4-46.3) fL Neut # (Auto) (1.40-6.50) K/uL Lymph # (Auto) (1.20-3.40) K/uL [place] # (Auto) (0.11-0.59) K/uL Eos # (Auto) (0.00-0.50) K/uL POC pH 7.26 L (7.35-7.45) POC pCO2 (35-46) mmHg POC pO2 77 L (80-95) mmHg POC HCO3 18 L (19-24) osmar/L ABG pH (Temp Correct) 7.268 L (7.35-7.45) ABG pCO2 (Temp Corrct (35-46) mmHg POC ABG O2 Sat (90-95) % VBG pH (7.36-7.41) POC Sodium (135-144) mmol/L Sodium 134 L (136-145) mmol/L POC Potassium (3.3-5.0) mmol/L Potassium (3.5-5.1) mmol/L Carbon Dioxide 19 L (21-32) mmol/L POC Total CO2 19 L (24-31) mmol/L Anion Gap (3-11) POC BUN (7-18) mg/dl Creatinine 1.80 H (0.6-1.4) mg/dl POC Creatinine (0.6-1.3) mg/dl Glucose 216 H (70-99(Fasting)) mg/dl POC Glucose (70-99) mg/dl POC Glucose (other) 213 H (70-99) mg/dl Lactate 2.5 H* (0.4-2.0) mmol/L Calcium 8.5 L (8.6-10.3) mg/dl Alkaline Phosphatase (34-104) U/L Troponin I High Sens 1346.9 H* D (0-20) pg/ml B-Natriuretic Peptide > 4700 H (0-100) pg/ml Urine Protein (Negative) Urine Blood (Negative) Ur Leukocyte Esterase (Negative) Urine WBC (Auto) (0-5) /hpf Urine RBC (Auto) (0-2) /hpf 10/23/24 10/23/24 10/23/24 Range/Units 12:53 13:55 14:56 WBC (4.8-10.8) K/ul MCHC (32.0-36.0) g/dL RDW Std Deviation (36.4-46.3) fL Neut # (Auto) (1.40-6.50) K/uL Lymph # (Auto) (1.20-3.40) K/uL [place] # (Auto) (0.11-0.59) K/uL Eos # (Auto) (0.00-0.50) K/uL POC pH (7.35-7.45) POC pCO2 (35-46) mmHg POC pO2 (80-95) mmHg POC HCO3 (19-24) osmar/L ABG pH (Temp Correct) (7.35-7.45) ABG pCO2 (Temp Corrct (35-46) mmHg POC ABG O2 Sat (90-95) % VBG pH (7.36-7.41) POC Sodium (135-144) mmol/L Sodium (136-145) mmol/L POC Potassium (3.3-5.0) mmol/L Potassium (3.5-5.1) mmol/L Carbon Dioxide (21-32) mmol/L POC Total CO2 (24-31) mmol/L Anion Gap (3-11) POC BUN (7-18) mg/dl Creatinine (0.6-1.4) mg/dl POC Creatinine (0.6-1.3) mg/dl Glucose (70-99(Fasting)) mg/dl POC Glucose (70-99) mg/dl POC Glucose (other) 217 H 205 H 195 H (70-99) mg/dl Lactate (0.4-2.0) mmol/L Calcium (8.6-10.3) mg/dl Alkaline Phosphatase (34-104) U/L Troponin I High Sens (0-20) pg/ml B-Natriuretic Peptide (0-100) pg/ml Urine Protein (Negative) Urine Blood (Negative) Ur Leukocyte Esterase (Negative) Urine WBC (Auto) (0-5) /hpf Urine RBC (Auto) (0-2) /hpf Diagnostic Findings Abdomen/Pelvis CT 10/23/24 01:16 EXAM: CT abd pelvis IV con only CLINICAL HISTORY: acute resp fail, r/o PE, ams, wojciech, 120 ml optiray 320 TECHNIQUE: Contiguous axial images were obtained from the level of the diaphragm to the pubic symphysis following intravenous administration of contrast material. Coronal and sagittal reconstructions were likewise performed and indicated to increase the sensitivity for detecting clinically relevant pathology. If IV contrast material had not been administered, the likelihood of detecting abnormalities relevant to the patient's condition would have been substantially decreased. CT scan was performed according to ALARA (as low as reasonable achievable). COMPARISON: None. FINDINGS: The visualized lung bases show confluent centrilobular emphysema with patchy consolidation. The liver shows two small subcentimetric cysts in segment II and VIII. No other focal liver lesions are seen. There is no intra or extrahepatic biliary ductal dilatation. Hepatic vasculature is patent. The gallbladder is unremarkable. The spleen, pancreas, and adrenal glands are unremarkable. The kidneys are normal in size and attenuation with a subcentimetric simple cyst at the upper pole of left kidney. There is no hydronephrosis or perinephric fat stranding. The ureters are normal in caliber. The urinary bladder is empty with Wilkinson's catheter in situ. The prostate is grossly enlarged. No focal or diffuse bowel wall thickening or evidence of bowel obstruction is identified. No inflamed appendix is visualized in the right lower quadrant. Extensive atherocalcific plaques noted in the abdominal aorta. Left small fat-containing inguinal hernia is noted. No aggressive appearing osseous lesions are identified. IMPRESSION: 1. Confluent centrilobular emphysema with patchy consolidation in visualized lung bases. 2. Prostatomegaly - ultrasound correlation recommended 3. Left fat-containing small inguinal hernia Electronically signed by Gilberto Middleton 10-23-2024 03:25 AM Chest CTA 10/23/24 01:16 EXAM: CT angio chest PE protocol CLINICAL HISTORY: acute resp fail, r/o PE, ams, wojciech, 120 ml optiray 320 TECHNIQUE: Contiguous 3.[address] angiographic images of the chest were acquired with the administration of intravenous contrast. Coronal and sagittal reconstructions were obtained. One of these 3D techniques was utilized: Maximum Intensity Pixel (MIP), 3D Reconstructed Images, Volume Rendered Images, Surface Shaded Rendering. One of the following dose reduction techniques were utilized for this exam: Automated exposure control, adjustment of the mA and/or kV according to patient size, and use of iterative reconstruction. CTDI: DLP: COMPARISON: None. FINDINGS: Aorta: Extensive atherocalcific plaques in aortic arch and descending thoracic aorta. No evidence of aneurysm, dissection, or significant atherosclerotic changes. Aortic arch and descending thoracic aorta are unremarkable. Pulmonary Arteries: Pulmonary arteries are normal in size and opacification. No evidence of pulmonary embolism. No stenosis or filling defects. Superior Vena Cava (SVC) and Inferior Vena Cava (IVC): Normal opacification and caliber. No evidence of thrombus or obstruction. Coronary Arteries: Coronary arteries are well-opacified. No significant stenosis or atherosclerotic changes. Mediastinum: No mediastinal mass or lymphadenopathy. Normal appearance of the thymus. Heart: Normal size and morphology of the heart. No pericardial effusion. Lungs: Visualized abdomen reveals few subcentimetric simple hepatic cyst in segment II and VIII. There is confluent centrilobular and substantial paraseptal emphysema in bilateral lung parenchyma. Patchy consolidation with interlobular septal thickening apicoposterior segment of left upper lobe, posterior segment of right upper lobe and bilateral lower lobes. Right mild pleural effusion, measuring up to 1.4 cm in thickness and left mild pleural effusion measuring up to 1 cm in thickness. Few fibrotic bands at apical segment of right upper lobe. No pleural effusion or thickening. Bones: No fractures or lytic/sclerotic lesions of the visualized bony structures. Normal alignment and bone density. Soft Tissues: Few enlarged mediastinal lymph nodes, largest of short axis diameter 1.3 cm at subcarinal location. No abnormal masses or fluid collections. IMPRESSION: 1. No evidence of pulmonary embolism. 2. Confluent centrilobular and substantial paraseptal emphysema in bilateral lung parenchyma. 3. Patchy consolidation with interlobular septal thickening at apicoposterior segment of left upper lobe, posterior segment of right upper lobe and bilateral lower lobes. 4. Right mild pleural effusion, measuring up to 1.4 cm in thickness and left mild pleural effusion measuring up to 1 cm in thickness. 5. Mediastinal lymphadenopathy, likely reactive. Electronically signed by Gilberto Middleton 10-23-2024 04:[address] 10/23/24 01:16 EXAM: CT head/brain wo con CLINICAL HISTORY: acute resp fail, r/o PE, ams, wojciech, 120 ml optiray 320 TECHNIQUE: Multiple axial images are obtained from the skull base to the vertex without contrast. CT scan was performed according to ALARA (as low as reasonable achievable). COMPARISON: None. FINDINGS: There is cerebral atrophy. No evidence of space occupying lesion, hemorrhage, edema, mass effect, midline shift, extra axial collection, or hydrocephalus is noted. Basal cisterns are symmetric and normal in size and configuration. There are scattered periventricular hypodensities as can be seen with chronic microvascular ischemic changes. The lund-white matter differentiation is preserved. Visualized paranasal sinuses and mastoid air cells are well aerated. Orbital contents are within normal limits. Bony structures are intact. IMPRESSION: 1. Chronic microvascular ischemic changes. 2. Cerebral atrophy. 3. No evidence of acute intracranial abnormality. Electronically signed by Gilberto Middleton 10-23-2024 02:59 AM Chest X-Ray 10/23/24 04:26 EXAM: XR chest 1V portable CLINICAL HISTORY: POST INTUBATION SDM TECHNIQUE: An X-ray image of the chest is obtained in 1 AP projection. COMPARISON: CT 10/23/2024. FINDINGS: Lines and tubes: ETT was noted with a tip at 2.9cm from the christopher. Pulmonary Parenchyma: Diffuse patchy opacities were noted in the right lung and patchy discrete opacities in the left lung. Bilateral apical capping was noted more on the right side suggesting pleural thickening and apical consolidation. Heart and Mediastinum: Heart size and shape are normal. No mediastinal widening or masses. No hilar or mediastinal lymphadenopathy. Bony Thorax: Bony thorax appears intact without fractures or deformities. Soft Tissues: Soft tissues overlying the chest wall are unremarkable. IMPRESSION: 1. ETT was noted with a tip at 2.9cm from the christopher. 2. The rest of the findings correlate with the findings on CT 10/23/2024. Electronically signed by Chirag Farris 10-23-2024 06:11 AM PG Care Time/CCT Total # of Minutes Spent Total Time Spent with Patient: Total time spent is greater than 50% in coordination of care (as documented) at patient's floor/unit and/or counseling patient: Coding Level of Care Code None Diagnoses Acute respiratory failure with hypoxia and hypercapnia J96.01; J96.02 Acute on chronic systolic heart failure I50.23 Shock R57.9 Aspiration pneumonia J69.0 Aspiration pneumonia type: unspecified Laterality: bilateral Lung location: lower lobe of lung NSTEMI (non-ST elevated myocardial infarction) I21.4 CAD (coronary artery disease) I25.10 Associated angina: unspecified whether angina present Coronary Disease-Associated Artery/Lesion type: unspecified vessel or lesion type [place] vs. transplanted heart: [place] heart Left bundle branch block I44.7 Restrictive lung disease J98.4 Centrilobular emphysema J44.9 Presence of stent in coronary artery Z95.5 Elevated serum creatinine R79.89 DVT prophylaxis Z29.9 (4) Aspiration pneumonia Aspiration pneumonia type: unspecified Laterality: bilateral Lung location: lower lobe of lung Qualified Code(s): J69.0 - Pneumonitis due to inhalation of food and vomit (6) CAD (coronary artery disease) Associated angina: unspecified whether angina present Coronary Disease- Associated Artery/Lesion type: unspecified vessel or lesion type [place] vs. transplanted heart: [place] heart Qualified Code(s): I25.10 - Atherosclerotic heart disease of [place] coronary artery without angina pectoris
[2024-10-23] MEDS: ICU ELECTROLYTE REPLACEMENT PROTOCOL SCH (16:27)
[2024-10-23 20:26] LABS: ANTI-Xa, UFH(UnfractionatedHep 0.47 IU/ml (0.3-0.7)
[2024-10-24] MEDS: INSULIN ASPART PER UNIT CHARGE SC SCH ×2 (01:00→11:31)
[2024-10-24 03:34] LABS: Albumin Globulin Ratio 1.2 (0.9-2); Albumin Level 3.2 gm/dl (3.4-5.0); Bilirubin,Total 0.4 mg/dl (0.2-1.0); Calcium 8.4 mg/dl (8.6-10.3); Creatinine Clr Calc Pharmacy 17.6 ml/min; Globulin 2.6 gm/dl (2.5-4.0); Magnesium 1.8 mg/dl (1.7-2.4); Phosphorus 3.6 mg/dl (2.5-4.9); Potassium 3.9 mmol/L (3.5-5.1); Total Protein 5.8 gm/dl (6.0-8.3)
[2024-10-24 03:37] LABS: iSTAT Art Bld Gas pCO2 Correct 31 mmHg (35-46); iSTAT Art Bld Gas pH Corrected 7.402 (7.35-7.45); iSTAT Arterial Blood Gas HCO3 19 meg/L (19-24); iSTAT Arterial Blood Gas pCO2 30 mmHg (35-46); iSTAT Arterial Blood Gas pH 7.41 (7.35-7.45); iSTAT Arterial Blood Gas pO2 110 mmHg (80-95); iSTAT Arterial Blood Gas pO2 C 112; iSTAT Carbon Dioxide 20 mmol/L (24-31); iSTAT FiO2 40 %; iSTAT Hematocrit 41 % (42-52); iSTAT Hemoglobin 13.9 g/dl (14.0-18.0); iSTAT Sample Type Arterial; iSTAT Site Art Line; iSTAT Sodium 131 mmol/L (135-144); iSTAT SpO2 97
[2024-10-24 03:41] LABS: Troponin I High Sensitivity 1147.1 pg/ml (0-20)
[2024-10-24 03:44] LABS: ANTI-Xa, UFH(UnfractionatedHep 0.53 IU/ml (0.3-0.7); INR 1.1 (0.9-1.1); Partial Thromboplastin Ratio 2.8; Partial Thromboplastin Time 75 Seconds (21-31); Prothrombin Time 11.9 Seconds (9.0-12.0)
[2024-10-24 03:48] LABS: Thyroid Stimulating Hormone 1.851 uIu/ml (0.300-4.500)
[2024-10-24 04:04] LABS: Basophils # (auto) 0.03 K/uL (0.00-0.20); Basophils % (auto) 0.1 %; Hematocrit (blood only) 40.2 % (42.0-52.0); Hemoglobin 13.9 g/dl (14.0-18.0); Immature Granulocytes # (auto) 0.15 K/uL (0.01-0.20); Immature Granulocytes % (auto) 0.6 %; Lymphocytes # (auto) 2.24 K/uL (1.20-3.40); Lymphocytes % (auto) 9.6 %; Mean Corpuscular Hemoglobin 31.7 pg (25.0-34.0); Mean Corpuscular Hgb Conc 34.6 g/dL (32.0-36.0); Mean Corpuscular Volume 91.8 fL (80.0-100.0); Mean Platelet Volume 9.8 fL (9.4-12.4); Monocytes # (auto) 1.73 K/uL (0.11-0.59); Monocytes % (auto) 7.4 %; Neutrophils % (auto) 82.3 %; Platelet Count 298 K/uL (130-400); RDW Coefficient of Variation 13.8 % (11.5-14.5); RDW Standard Deviation 46.5 fL (36.4-46.3); Red Blood Count 4.38 M/uL (4.70-6.10); White Blood Count 23.25 K/ul (4.8-10.8)
[2024-10-24] MEDS: MAGNESIUM SULFATE / D5W 1 GM/100 ML BAG IV SCH (05:45)
--- NOTE | 2024-10-24 08:07 | XRay Report ---
EXAM: XR chest 1V portable CLINICAL HISTORY: RESP FAILURE. TECHNIQUE: An X-ray image of the chest is obtained in 1 AP projection. COMPARISON: 10/23/2024 FINDINGS: Lines and tubes: ETT was noted low-lying with a tip at 1.3 cm from the christopher. A nasogastric tube is seen reaching the left upper abdomen. Pulmonary Parenchyma: Diffuse interstitial thickening in the bilateral lung field more on the right side Right upper zonal patchy opacities and fibrotic bands. Regressive changes of right mid and lower zonal opacities. Bilateral basal pleural thickening and apical capping were noted more on the right side suggesting pleural thickening and apical consolidation. Heart and Mediastinum: Heart size and shape are normal. No mediastinal widening or masses. No hilar or mediastinal lymphadenopathy. Prominent aortic shadow. Bony Thorax: Bony thorax appears intact without fractures or deformities. Soft Tissues: Soft tissues overlying the chest wall are unremarkable. IMPRESSION: Lowlying ETT was noted with a tip at 1.3 cm from the christopher. Needs repositioning. NGT in place. Regressive changes of right mid and lower zonal opacities with still noted coarsened interstitium, bilateral pleural thickeing, apical consolidation, and fibrotic bands. Electronically signed by Chirag Farris 10-24-2024 08:06 AM
--- NOTE | 2024-10-24 08:59 | Critical Care Progress Note ---
Date of Service October 24, 2024 Assessment & Plan (1) Acute respiratory failure with hypoxia: (2) Required emergent intubation: (3) CAD (coronary artery disease): (4) Hyperglycemia: (5) MELLY (acute kidney injury): Plan Reason Critically Ill: 84 YOM presents to the ER for hypoxic respiratory failure and concern for hemoptysis, patient initially tolerated BiPAP and had improved RR, SPO2, Tachycardia, arrival to ICU patient with acute decopensation with vomiting and coughing- poor reserve and high risk for decompensating further therefore was intubated. DDX at this time is cardiogenic pulmonary edema vs. DAH vs. infective or combination of any of the above. Neuro - Sedation for mechanical ventilation, anxiety CAM ICU: NEGATIVE prior to sedation and intubation - Sedation at this time will be with fentanyl infusion and versed PRN Cardiac - Elevated HsCTNI, CAD with stents, HFrEF, -Given reported bronchoscopic findings I am concerned that this represents cardiac source likely acute cardiogenic pulmonary edema - ECG is without obvious STEMI- He is with ST depressions and incomplete LBB- reviewing records from most recent cardiology note appears this was his change since July - last ECG we have for review is 2020 - Previous ACS in July where he did require emergent intubation and placement of IABP and appears as reported stents to RCA and left main - HsCTNI appears to have peaked - ECHO report reviewed - Currently on heparin - Hold Entresto - Hold BB until hemodynamics proven stable Hypotension: Presumed cardiogenic in origin -Wean vasoactive's as tolerated Respiratory - Pulmonary edema with small effusions, hypoxic respiratory failure requiring emergent intubation, Abnormal CT chest, COPD- Emphysema, respiratory acidosis -Reviewed bronchoscopy findings - At this time pulmonary edema may be from SCAPE like picture with anxiety and elevated blood pressures -Cell counts not indicative of pulmonary infection - COPD with emphysema-Legionella antigen pending, will continue with azithromycin for possible COPD exacerbation given emphysematous changes and structural lung disease -Discontinuing Zosyn, linezolid discontinued secondary to negative MRSA swab -Proceeding with extubation to allow patient to participate in medical decision making and further management. -It appears acute pulmonary edema episode has resolved. GI -n.p.o. until able to complete bedside swallow study RENAL/LYTES - MELLY - MELLY - follow closely with contrast and diuretics - renal dose medications -Anion gap closed -Goal to be net negative - Wilkinson to gravity enlarged prostate on imaging - continue with Wilkinson to gravity ENDO - hyperglycemia: Improved - ICU hyperglycemia protocol -Random cortisol adequate HEME - -Heparin infusion for possible cardiac disease/ACS ID -continue with Zithromax, discontinue Zosyn Linezolid LINES/IV ACCESS - PIV x2, ETT, OGT, Wilkinson, IO Continue use of these lines- discontinue IO DVT PROPHYLAXIS - SCDS, ASA, Brilinta DISPO: Discussion with cardiology service requesting transfer for further evaluation management of coronary artery disease Admission and Anticipated Discharge Date Admission Date: October 23, 2024 Supervising Physician Co-Signing Physician Notes I have personally spent 45 minutes of critical care time in the direct management of this patient. This is a life/limb threatening event. This includes time spent evaluating patient, direct bedside care, chart review, placing orders, interpretation of diagnostic studies, discussion with consultants, patient, and/or family members regarding treatment decisions, as well as other required patient management activities. This time is exclusive of all separately billable procedures, and teaching time and separate from and in addition to any other critical care service time. Subjective Patient having frequent ectopy. Able to follow complex commands with lightening of sedation Discussed with cardiology RHONDA: New change of decreased EF from prior records -Concern left main may be culprit lesion which was recently intervened at [facility] Approximately 4 months ago -Cardiology requesting transfer for further evaluation and possible CABG (previously explored CABG with [facility]) Review of Systems Review of Systems: Unobtainable due to endotracheal tube Physical Exam Physical Exam: General: Sedated. nontoxic. With lightening of sedation patient arouses f ollows two-step commands Skin: Warm, dry, Head: Atraumatic Ears, nose, mouth and throat: airway obscured by endotracheal tube Cardiovascular: Normal peripheral perfusion, frequent ectopy on bedside monitor Respiratory: Ventilator settings reviewed Gastrointestinal: Non distended Musculoskeletal: No deformity Results & Data Results & Data Vital Signs (Past 12 Hours) Vital Signs Temp Pulse Resp BP Pulse Ox O2 Del Method FiO2 10/24/24 08:13 Mechanical Vent 10/24/24 08:00 40 10/24/24 07:00 82 24 97 40 10/24/24 07:00 37.2 C 83 24 97 10/24/24 06:03 37.2 C 81 24 142/67 H 99 10/24/24 05:45 37.2 C 83 24 99 10/24/24 05:00 37.2 C 79 24 98 10/24/24 04:09 37.1 C 98 H 23 100 10/24/24 04:00 40 10/24/24 03:57 37.2 C 76 21 98 10/24/24 03:30 84 24 100 40 10/24/24 03:12 37.3 C 77 25 H 97 10/24/24 02:03 37.2 C 90 24 124/67 97 10/24/24 01:45 37.3 C 81 24 97 10/24/24 01:06 37.4 C 84 21 97 10/24/24 00:17 73 10/24/24 00:06 37.4 C 75 21 97 10/24/24 00:00 40 10/23/24 23:39 76 24 97 40 10/23/24 23:00 37.4 C 75 29 H 96 10/23/24 22:33 37.3 C 85 26 H 96 10/23/24 22:00 127/67 10/23/24 21:48 37.3 C 76 25 H 96 10/23/24 21:12 37.1 C 75 24 95 Critical Care Results & Data Vital Signs (Past 12 Hours) Vital Signs Temp Pulse Resp BP Pulse Ox O2 Del Method FiO2 10/24/24 08:13 Mechanical Vent 10/24/24 08:00 40 10/24/24 07:00 82 24 97 40 10/24/24 07:00 37.2 C 83 24 97 10/24/24 06:03 37.2 C 81 24 142/67 H 99 10/24/24 05:45 37.2 C 83 24 99 10/24/24 05:00 37.2 C 79 24 98 10/24/24 04:09 37.1 C 98 H 23 100 10/24/24 04:00 40 10/24/24 03:57 37.2 C 76 21 98 10/24/24 03:30 84 24 100 40 10/24/24 03:12 37.3 C 77 25 H 97 10/24/24 02:03 37.2 C 90 24 124/67 97 10/24/24 01:45 37.3 C 81 24 97 10/24/24 01:06 37.4 C 84 21 97 12/23/24 00:17 73 10/24/24 00:06 37.4 C 75 21 97 10/24/24 00:00 40 10/23/24 23:39 76 24 97 40 10/23/24 23:00 37.4 C 75 29 H 96 10/23/24 22:33 37.3 C 85 26 H 96 10/23/24 22:00 127/67 10/23/24 21:48 37.3 C 76 25 H 96 10/23/24 21:12 37.1 C 75 24 95 Lab & Micro Results (Past 24 Hours) RBC 4.38 M/uL (4.70-6.10) L 10/24/24 WBC 23.25 K/ul (4.8-10.8) H 10/24/24 Hgb 13.9 g/dl (14.0-18.0) L 10/24/24 Hct 40.2 % (42.0-52.0) L 10/24/24 MCV 91.8 fL (80.0-100.0) 10/24/24 MCH 31.7 pg (25.0-34.0) 10/24/24 MCHC 34.6 g/dL (32.0-36.0) 10/24/24 RDW Standard Deviation 46.5 fL (36.4-46.3) H 10/24/24 RDW Coefficient of Variation 13.8 % (11.5-14.5) 10/24/24 Plt Count 298 K/uL (130-400) 10/24/24 MPV 9.8 fL (9.4-12.4) 10/24/24 Neutrophils (%) (Auto) 82.3 % 10/24/24 Lymphocytes (%) (Auto) 9.6 % 10/24/24 Monocytes # (Auto) 1.73 K/uL (0.11-0.59) H 10/24/24 Eosinophils # (Auto) 0.00 K/uL (0.00-0.50) 10/24/24 Immature Granulocyte % (Auto) 0.6 % 10/24/24 Neutrophils # (Auto) 19.10 K/uL (1.40-6.50) H 10/24/24 Lymphocytes # (Auto) 2.24 K/uL (1.20-3.40) 10/24/24 Monocytes # (Auto) 1.73 K/uL (0.11-0.59) H 10/24/24 Eosinophils # (Auto) 0.00 K/uL (0.00-0.50) 10/24/24 Basophils # (Auto) 0.03 K/uL (0.00-0.20) 10/24/24 Immature Granulocyte # (Auto) 0.15 K/uL (0.01-0.20) 4 Na 131 mmol/L (136-145) L 10/24/24 K 3.9 mmol/L (3.5-5.1) 10/24/24 Cl 101 mmol/L (98-107) 10/24/24 CO2 20 mmol/L (21-32) L 10/24/24 Anion Gap 10 (3-11) 10/24/24 BUN 29 mg/dl (6-23) H 10/24/24 Creatinine 2.42 mg/dl (0.6-1.4) H 10/24/24 BUN/Creatinine Ratio 12.0 (10-20) 10/24/24 Glu 90 mg/dl (70-99(Fasting)) 10/24/24 Ca 8.4 mg/dl (8.6-10.3) L 10/24/24 Phosphorus Level 3.6 mg/dl (2.5-4.9) 10/24/24 Total Bilirubin 0.4 mg/dl (0.2-1.0) 10/24/24 AST 16 U/L (13-39) 10/24/24 ALT 11 U/L (7-52) 10/24/24 Alkaline Phosphatase 82 U/L (34-104) 10/24/24 TP 5.8 gm/dl (6.0-8.3) L 10/24/24 Albumin 3.2 gm/dl (3.4-5.0) L 10/24/24 Globulin 2.6 gm/dl (2.5-4.0) 10/24/24 Albumin/Globulin Ratio 1.2 (0.9-2) 10/24/24 Mg 1.8 mg/dl (1.7-2.4) 10/24/24 03:05 Calcium Level 8.4 mg/dl (8.6-10.3) L 10/24/24 03:05 Prothromb Time International Ratio 1.1 (0.9-1.1) 10/24/24 03:0 5 Yasir Test NA 10/24/24 03:25 Microbiology 10/23/24 07:45 Gram Stain - Final Ba Lavage,Right Middle Lobe Bronchial Culture - Preliminary Pin-point growth present, reincubating. 10/23/24 07:45 Acid Fast Bacilli Smear - Final Ba Lavage,Right Middle Lobe 10/23/24 02:38 Aerobic Blood Culture - Preliminary Blood No growth in Aerobic bottle after 24 hours. Anaerobic Blood Culture - Preliminary No growth in Anaerobic bottle after 24 hours. 10/23/24 02:43 Aerobic Blood Culture - Preliminary Blood No growth in Aerobic bottle after 24 hours. 10/23/24 07:45 Fungal Smear - Final Ba Lavage,Right Middle Lobe Diagnostic Findings (Past 24 Hours) Chest X-Ray 10/24/24 07:00 EXAM: XR chest 1V portable CLINICAL HISTORY: RESP FAILURE. TECHNIQUE: An X-ray image of the chest is obtained in 1 AP projection. COMPARISON: 10/23/2024 FINDINGS: Lines and tubes: ETT was noted low-lying with a tip at 1.3 cm from the christopher. A nasogastric tube is seen reaching the left upper abdomen. Pulmonary Parenchyma: Diffuse interstitial thickening in the bilateral lung field more on the right side Right upper zonal patchy opacities and fibrotic bands. Regressive changes of right mid and lower zonal opacities. Bilateral basal pleural thickening and apical capping were noted more on the right side suggesting pleural thickening and apical consolidation. Heart and Mediastinum: Heart size and shape are normal. No mediastinal widening or masses. No hilar or mediastinal lymphadenopathy. Prominent aortic shadow. Bony Thorax: Bony thorax appears intact without fractures or deformities. Soft Tissues: Soft tissues overlying the chest wall are unremarkable. IMPRESSION: Lowlying ETT was noted with a tip at 1.3 cm from the christopher. Needs repositioning. NGT in place. Regressive changes of right mid and lower zonal opacities with still noted coarsened interstitium, bilateral pleural thickeing, apical consolidation, and fibrotic bands. Electronically signed by Chirag Farris 10-24-2024 08:06 AM I & O Totals 24 Hours 10/23/24 10/24/24 10/25/24 06:59 06:59 06:59 Intake Total 500 / 953.831 2852.642 / 1923.642 71.667 / 71.667 Output Total 580 / 580 437 / 437 Balance -80 / -69.667 1486.642 / 1486.642 71.667 / 71.667 Cumulative 10/23/24 00:35 thru 10/24/24 07:11 Intake Total 2495.309 Output Total 1017 Balance 1478.309 RT Ventilator Mngmt (Last Documented) Ventilator Ordered Settings Ventilator Support Mode Assist Control 10/24/24 08:00 Respiratory Rate 24 10/24/24 07:00 Ventilator Tidal Volume 420 10/24/24 08:00 Setting Minute Ventilation 10.1 10/24/24 07:00 Positive End Expiratory 8 10/24/24 08:00 Pressure Fraction of Inspired Oxygen 40 10/24/24 08:00 Ventilator - PT Measurements Respiratory Rate 24 Exhaled Tidal Volume 420 Minute Ventilation 10.1 Peak Inspiratory Airway 20 Pressure Plateau Pressure 17 Respiratory Cycle Inspiratory: 1:2.1 Expiratory Ratio Inspiratory Phase Time 0.8 End-Tidal CO2 24 Static Lung Compliance 46.67 Dynamic Lung Compliance 35.00 Normal Static Lung Compliance 48.00 Patient Measurements Comment found patient on 24RR/420/+8/40% Coding Level of Care Code 74510 CRITICAL CARE 1ST 30-74M Diagnoses Acute respiratory failure with hypoxia J96.01 Required emergent intubation Z98.890 CAD (coronary artery disease) I25.10 Associated angina: unspecified whether angina present Coronary Disease-Associated Artery/Lesion type: unspecified vessel or lesion type [place] vs. transplanted heart: [place] heart Hyperglycemia R73.9 MELLY (acute kidney injury) N17.9 (3) CAD (coronary artery disease) Associated angina: unspecified whether angina present Coronary Disease- Associated Artery/Lesion type: unspecified vessel or lesion type [place] vs. transplanted heart: [place] heart Qualified Code(s): I25.10 - Atherosclerotic heart disease of [place] coronary artery without angina pectoris
[2024-10-24] MEDS ORDERED: AZITHROMYCIN 250 MG TAB PO SCH (09:00)
[2024-10-24] MEDS: BUMETANIDE 1 MG in SYRINGE 0 ML IV ONE (10:33)
[2024-10-24] MEDS: AZITHROMYCIN 250 MG/6.25 ML UDP PO SCH (10:33)
--- NOTE | 2024-10-24 12:07 | Discharge Summary ---
Discharge Summary Date of Service October 24, 2024 Principal Dx & Hospital Course #1 = Principal Diagnosis (1) Acute respiratory failure with hypoxia and hypercapnia: possibly multifactorial including decompensated CHF and pneumonia initiation of BIPAP in ER was initially helpful but unfortunately he ultimately decompensated further requiring ICU admission & intubation/mech ventilation defer vent management to ICU attending (2) Acute on chronic systolic heart failure: clinically & radiographically presented with decompensated systolic CHF EF 25-30% on echo s/p lasix IV this am by report has had poor UOP despite the lasix need for inotropic agent? defer to cardiology & ICU attending holding meto succ holding Entresto (3) Shock: suspect mainly cardiogenic - now on levophed cannot rule out component of septic shock but much less likely cortisol level wnl no evidence of bleeding; stable H/H defer shock management to ICU attending (4) Aspiration pneumonia: suspected s/p bronchoscopy overnight - cultures sent is on broad-spectrum IV abx - zosyn/azithromycin MRSA swab is negative - defer on MRSA coverage - zyvox d/c (5) NSTEMI (non-ST elevated myocardial infarction): presenting troponin was 22; now >1000 trend until the peak uncertain if type 1 vs type 2 TN (ie myocardial demand ischemia) to cover for acute coronary event remains on heparin infusion, asa, Brilinta defer management to cardiology/ICU attending (6) CAD (coronary artery disease): h/o stent placement at [facility] - 07/2024 s/p stents x 2 - L main, RCA ? meto succ & Entresto on hold can cont asa cont Brilinta statin currently on hold (7) Left bundle branch block: EKG with incomplete LBBB anterolateral ST depressions also noted troponin elevation noted - see below (8) Restrictive lung disease: (9) COPD (chronic obstructive pulmonary disease): no indication for systemic steroids at this time (10) Presence of stent in coronary artery: see above (11) Elevated serum creatinine: baseline creatinine uncertain presenting Cr 1.7 today 1.8 was 1.3 in 2021 serial BMPs (12) DVT prophylaxis: heparin infusion Admission HPI Per Admitting Provider The patient is a 84-year-old male with a past medical history including coronary disease status post stent placement July 2024 in [facility], restrictive lung disease, COPD, ex smoker history of 40 years ago, recent pneumonia COVID-19 virus in July, hyperlipidemia, recent urinary tract infection, hypertension, impression dual antiplatelet therapy with Brilinta and aspirin. The patient was in his usual state of health, after recovering well from his stent placement in July, until he developed acute episode of shortness of breath, dyspnea on exertion, and single episode of coughing up blood clot earlier this evening. Is brought to the emergency department via EMS, was found to be in acute respiratory failure, received a dose of ketamine from the ED, was sent for stat CTs, and then [facility] The patient himself is somewhat lethargic, is able to nod yes or no to questions, but most of his HPI and ROS are provided by family in attendance. Discharge Exam gen - intubated, sedated neck - JVD present mouth - ETT, enteric tube present heart - RRR, s1 s2, no obvious murmur lungs - decreased BS bases, CTA b/l otherwise abd - soft NT ND BS+; no HSM ext - very cool to touch distal legs/feet; pulses 1+ b/l Discharge Plan Discharge Items Reason For Visit: ACUTE RESP FAILURE W/ HYPOXIA, ASP PNEUM, CHF Follow-up/Referrals: Serena Boucher MD [Primary Care Provider] - Medications and DC Order Prescriptions: No Action albuterol sulfate 90 mcg/actuation HFA aerosol inhaler 2 puff inhalation Q6H PRN (Reason: Shortness Of Breath Or Wheezing) Qty: 18 3RF aspirin [Adult Aspirin Regimen] 81 mg tablet,delayed release (DR/EC) 81 mg PO DAILY cephalexin 500 mg capsule 500 mg PO TID 7 Days Qty: 21 0RF citalopram 10 mg tablet 10 mg PO DAILY furosemide 20 mg tablet 20 mg PO DAILY sacubitril-valsartan [Entresto] 49-51 mg tablet 1 tab PO BID atorvastatin 40 mg tablet 40 mg PO HS metoprolol succinate 50 mg tablet extended release 24 hr 50 mg PO DAILY Brilinta 90 mg tablet 90 mg PO BID dapagliflozin propanediol [Farxiga] 10 mg tablet 10 mg PO DAILY Admission Data Admit Date/Time: 10/23/24 02:22 Attending Provider: Brayan Cortez Admit Provider: Sundeep Ortiz Primary Care Provider: Serena Boucher Other Providers: Sundeep Ortiz; Pb Ferrer; Terrell Velasquez Hospital Stay Data Consultations 10/23/24 02:28 ED Decision to Admit Stat 10/23/24 02:54 Consult Cardiology Routine 10/23/24 04:28 Consult Acupuncture Physician Routine Diagnostic Imagining Performed 10/23/24 01:16 CT abd pelvis IV con only Stat CT angio chest PE protocol Stat CT head/brain wo con Stat Coding Diagnoses Acute respiratory failure with hypoxia and hypercapnia J96.01; J96.02 Acute on chronic systolic heart failure I50.23 Shock R57.9 Aspiration pneumonia J69.0 Aspiration pneumonia type: unspecified Laterality: bilateral Lung location: lower lobe of lung NSTEMI (non-ST elevated myocardial infarction) I21.4 CAD (coronary artery disease) I25.10 Associated angina: unspecified whether angina present Coronary Disease-Associated Artery/Lesion type: unspecified vessel or lesion type [place] vs. transplanted heart: [place] heart Left bundle branch block I44.7 Restrictive lung disease J98.4 Centrilobular emphysema J44.9 Presence of stent in coronary artery Z95.5 Elevated serum creatinine R79.89 DVT prophylaxis Z29.9
--- NOTE | 2024-10-24 12:10 | Pharmacy Report ---
Pharmacy Glycemic Short Note 2 - Date of Service October 24, 2024 - Glycemic Short BSG Results (Last 24 hours): 10/23/24 10/23/24 10/23/24 11:31 12:53 13:55 Glucose 216 H POC Glucose POC Glucose (other) 217 H 205 H 10/23/24 10/23/24 10/23/24 14:56 16:04 17:13 Glucose POC Glucose POC Glucose (other) 195 H 182 H 180 H 10/23/24 10/23/24 10/23/24 18:04 19:12 21:19 Glucose POC Glucose POC Glucose (other) 174 H 162 H 136 H 10/23/24 10/24/24 10/24/24 22:54 00:20 02:53 Glucose POC Glucose POC Glucose (other) 116 H 107 H 97 10/24/24 10/24/24 10/24/24 03:05 03:21 03:43 Glucose 90 POC Glucose POC Glucose (other) 90 94 10/24/24 10/24/24 10/24/24 04:07 05:05 06:34 Glucose POC Glucose POC Glucose (other) 110 H 101 H 152 H 10/24/24 10:36 Glucose POC Glucose 108 H POC Glucose (other) OUTPATIENT ANTIDIABETIC REGIMEN: * Dapagliflozin 10 mg PO daily * A1c = 5.6% ASSESSMENT: 10/24: * BSGs largely within goal the last 24h. Continued on hyperglycemia insulin infusion overnight. * Insulin drip discontinued this AM. Patient extubated- tube feeds discontinued. Pending swallow study and possible transfer. Norepinephrine weaned. * Novolog ~moderate-severe stress scale q6 while NPO. Hold basal for now given BSGs within goal, not on insulin @ home (A1C 5.6%), and NPO. 10/23: * Justin is a 84 yo admitted to ICU for acute respiratory failure s/p intubation. Patient is requiring pressor support in the form of norepinephrine. Given a one time dose of methylprednisolone 125 mg IV in ED. Labs from overnight indicated anion gap 18, bicarb 17 and BSG of 252 mg/dL. Per provider, anion gap acidosis likely related to lactate/renal function rather than DKA. Patient started on IV insulin infusion for persistent BSG > 200 mg/dL (per severe hyperglycemia protocol). PLAN FOR INPATIENT GLYCEMIC CONTROL: * Hold outpatient oral diabetes medications * Basal: * hold * Bolus * NovoLog per scale ACHS or Q6hrs while NPO * Goal Range: Low 110 mg/dL - High 140 mg/dL * Correction Factor: 30 mg/dL/unit * Nutritional / Prandial insulin per carb ratio: 1 unit/15 grams CHO
--- NOTE | 2024-10-24 14:35 | Cardiology Progress Note ---
Date of Service October 24, 2024 Assessment & Plan (1) NSTEMI (non-ST elevated myocardial infarction): (2) Shock: (3) Acute respiratory failure with hypoxia and hypercapnia: (4) HFrEF (heart failure with reduced ejection fraction): (5) Ischemic cardiomyopathy: Plan Pmhx: 1. S/p cardiogenic shock 07/12 requiring IABP placed at [facility] and then transferred with subsequent left main stenting at [facility] and total occlusion of the RCA with collateralization from the left 2. EF 25% at the time of his [facility] hospitalization, rebounding to 55% on limited echo at [facility] 08/2024 with akinesis in the scarring of the basal to mid inferior and basal inferoseptal LV wall segments. Hypokinesis of the inferolateral wall. Now with reduced EF again to 24% and global hypokinesis 3. COVID infection at the time of his [facility] admission 4. 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 NSTEMI 10/23 with HS troponin peak of 1300 and trending down 5. Cardiogenic shock and possible pulmonary infectious etiology with mechanical intubation Mr. Monzon's renewed reduction in EF and global hypokinesis is concerning for in stent rethrombosis of his left main. He did tell the beef cattle grazier that he had discontinued his medications for the week leading up to this hospitalization. Myself and Dr. Rico discussed with the beef cattle grazier - Mr. Monzon will need transfer to a tertiary care center for possible re-vascularization. His troponin is trending down. He remains on a heparin drip. Continue DAPT as patient is s/p stenting in July. Blood pressure is mildly hypertensive at this point. Pressor support per beef cattle grazier. Mr. Monzon received two doses of furosemide but in the face of worsening MELLY, further diuresis has been held. Hold Entresto for now as well. Patient to transfer to [facility] and Anticipated Discharge Date Admission Date: October 23, 2024 Subjective Mr. Monzon was awake at the time of my visit for a cpap trial prior to extubation but was still intubated so unable to answer any questions. He has been in SR/ST with PACs and NSVT/PVCs overnight. He is on pressors although at this point his bp is mildly hypertensive. Review of Systems Review of Systems: deferred due to intubation Physical Exam Constitutional: + ill appearing Respiratory: normal respiratory effort, lungs clear to auscultation mechanical ventilation Cardiovascular: Rate/Rhythm: + abnormal rate and + abnormal rhythm Heart Sounds: normal S1 and normal S2 Extremities: no edema Skin: no rashes, warm and dry Neurologic: moves all extremities and awake Results & Data Vital Signs (Past 12 Hours) Vital Signs Temp Pulse Resp BP Pulse Ox O2 Del Method FiO2 10/24/24 12:03 37.2 C 93 H 16 99 10/24/24 12:00 114/60 10/24/24 11:51 37.1 C 97 H 18 99 10/24/24 11:30 127/72 10/24/24 11:30 37.0 C 98 H 22 88 L 10/24/24 11:03 37.0 C 100 H 25 H 90 10/24/24 11:00 116/85 10/24/24 10:57 37.0 C 101 H 27 H 88 L 10/24/24 10:30 132/68 10/24/24 10:12 37.0 C 86 18 90 10/24/24 09:33 37.0 C 79 27 H 91 10/24/24 09:27 37.0 C 90 29 H 103/62 92 10/24/24 09:03 37.0 C 97 H 16 94 10/24/24 08:13 Mechanical Vent 10/24/24 08:06 37.2 C 80 24 98 10/24/24 08:01 138/61 10/24/24 08:00 40 10/24/24 07:48 37.2 C 81 24 98 10/24/24 07:00 82 24 97 40 10/24/24 07:00 37.2 C 83 24 97 10/24/24 06:03 37.2 C 81 24 142/67 H 99 10/24/24 05:45 37.2 C 83 24 99 10/24/24 05:00 37.2 C 79 24 98 10/24/24 04:09 37.1 C 98 H 23 100 10/24/24 04:00 40 10/24/24 03:57 37.2 C 76 21 98 10/24/24 03:30 84 24 100 40 10/24/24 03:12 37.3 C 77 25 H 97
--- NOTE | 2024-10-25 16:16 | Electrocardiogram Report ---
Test Reason : Blood Pressure : */* mmHG Vent. Rate : 130 BPM Atrial Rate : 130 BPM P-R Int : 136 ms QRS Dur : 108 ms QT Int : 316 ms P-R-T Axes : 54 19 191 degrees QTcB Int : 465 ms Sinus tachycardia with Premature atrial complexes Marked ST abnormality, possible inferolateral subendocardial injury Abnormal ECG When compared with ECG of 11-Aug-2021 19:47, Premature atrial complexes are now Present Questionable change in QRS duration Confirmed by Jin Hilario ([id number]) on 10/25/2024 4:16:33 PM Referred By: REFERRED SELF Confirmed By: Jni Hilario
== END 2024-10-24 13:49 | disposition short-term general hospital (02) | DRG 208 ==
LOC: ED 00:53 → 1E 02:22 → SUATTDRO 02:22 → 1E 03:17